=== PATIENT | female | born 1945 | race Caucasian/White ===

== ENCOUNTER 2018-06-05 14:00 | Outpatient (REF) | payer BC, SELFPAY | END 2018-06-05 14:20 | LOC: NCHCN 14:00 | PROVIDERS: PCP Internal Medicine; Visit Provider Internal Medicine | DX: Z87.440 Personal history of urinary (tract) infections (principal) | CPT/HCPCS: 87077; 87086; 87186 ==

== ENCOUNTER 2018-08-04 13:31 | Outpatient (CLI) | payer BC, SELFPAY ==
--- NOTE | 2018-08-04 13:38 | DI.RAD_ITS ---
SYMPTOMS/DIAGNOSIS: CHEST DISCOMFORT, R07.89 CHEST X-RAY, PA AND LATERAL: Comparison is 08/04/14. The heart size and pulmonary vasculature are within normal limits. The lungs are clear and well expanded. No effusions or pneumothoraces are identified. Degenerative changes are seen in the spine. IMPRESSION: No acute pulmonary process.
[2018-08-04 14:07] LABS: HCT 40.5 % (36.0-46.0); HGB 13.3 g/dL (12.0-15.5); Mean Corp. HGB Concentration 32.8 g/dL (32.0-36.0); Mean Corpuscular Hemoglobin 31.5 pg (27.0-33.0); Mean Platelet Volume 10.8 fL (8.0-11.0); Platelet Count 164 x1000/uL (130-400); RBC 4.22 m/cumm (4.00-5.20); RBC Distribution Width 13.2 % (11.7-14.6); White Blood Cell Count 3.72 k/cumm (4.4-10.8)
[2018-08-04 14:20] LABS: D-Dimer 396 ng/mlFEU (<500)
[2018-08-04 14:22] LABS: BUN 12 mg/dL (7-18); CREATININE 0.65 mg/dL (0.55-1.02); Calcium 8.9 mg/dL (8.5-10.1); Chloride 104 mmol/L (98-107); Glucose 109 mg/dL (70-100); Potassium 4.1 mmol/L (3.5-5.1); Sodium 143 mmol/L (136-145)
[2018-08-04 14:23] LABS: Troponin I < 0.02 ng/mL (0.00-0.06)
== END 2018-08-04 13:51 ==
PROVIDERS: PCP Internal Medicine; Visit Provider Nurse Practitioner Family
DX: R07.89 Other chest pain (principal)
CPT/HCPCS: 36415; 80048; 85027; 71046; 84484; 85379

== ENCOUNTER 2018-09-24 17:08 | Emergency (ER) | payer BC, SELFPAY ==
--- NOTE | 2018-09-24 17:19 | NUR.NOTE ---
pt noticed redness on her right food first joint big toe approximately 1400
[2018-09-24 17:20] VITALS: BP 150/68; PULSE 81; RESP 16; TEMP 36.6; O2SAT 98
--- NOTE | 2018-09-24 17:57 | DI.RAD_ITS ---
SYMPTOM/DIAGNOSIS: GREAT TOE PAIN, SWELLING RIGHT FOOT: Three views. No acute fracture or dislocation is seen. The soft tissues are unremarkable. IMPRESSION: No acute abnormality.
--- NOTE | 2018-09-24 17:58 | W.ED.GENAD ---
Discharge Plan Disposition Patient Disposition: HOME Condition: Improving Discharge Details Chief Complaint: Orthopedic Clinical Impression: Cellulitis of foot Primary Care Provider: Sergei Osorio ED Provider: Vance Smiley Home Meds and New Rx's Prescriptions: New doxycycline hyclate 100 mg capsule 100 mg PO BID 10 Days Qty: 20 RF: 0 Continued timolol maleate 15 ML drops 1 drp OD DAILY RF: 0 cranberry extract-vitamin C [Azo Cranberry Plus Vit C] 1 EACH capsule RF: 0 conjugated estrogens [Premarin] 30 GM cream VG .1-2 X PER WEEK RF: 0 bimatoprost [Lumigan] 2.5 ML drops 1 drp OU HS RF: 0 No Action sulfamethoxazole-trimethoprim 1 TAB tablet 1 ea PO BID Qty: 10 RF: 0 Discharge Instructions Instructions: Cellulitis (ED) Additional Instructions: Follow-up with Dr. Osorio for recheck if not improving in 5 days time. Take antibiotics as prescribed. Continue your regular medications. Medical Decision Making 73-year-old female presents with 1 day of right great toe pain and swelling with what she describes as erythema but on exam is more consistent with dependent rubor. She is afebrile and otherwise well-appearing. Differential diagnosis includes cellulitis osteoarthritis, gout, occult fracture or injury. Patient had screening laboratories obtained and was referred for x-ray Labs are reassuring without evidence of elevated inflammatory markers. Uric acid within normal range. Today with without evidence of underlying fracture. Formal read is pending. Discussed with the patient that there is no evidence of gouty arthritis. She may have a early cellulitis and therefore will treat with a course of antibiotics. She understands homecare as well as follow-up and return precautions. HPI General Mode of arrival: ambulatory. Date/Time Provider Initiated Documentation: 09/24/18 17:22. Limitations to Documentation: no limitations. Information obtained by: patient. History of Present Illness 73 year old F presents to the emergency department with the chief complaint of Left great toe pain and swelling x1d, described as moderate, Quality is described as aching, and is localized to the left and lower extremity. Patient reports no radiation. Patient started experiencing this hour(s) and it has been constant. No relieving factors improve symptom(s), No exacerbating factors reported . Patient notes denies fever/chills. Patient did receive the following treatments prior to arrival, none Related Data Home Medications Medication Instructions Recorded Confirmed timolol maleate 1 drp OD DAILY 01/18/13 01/04/17 cranberry extract-vitamin C [Azo 09/06/15 09/06/15 Cranberry Plus Vit C] bimatoprost [Lumigan] 1 drp OU HS 01/27/16 01/04/17 conjugated estrogens [Premarin] 0 gm VG .1-2 X PER WEEK 01/27/16 01/04/17 sulfamethoxazole-trimethoprim 1 ea PO BID #10 tab 01/04/17 doxycycline hyclate 100 mg PO BID 10 Days #20 cap 09/24/18 Previous Rx's Medication Instructions Recorded sulfamethoxazole-trimethoprim 1 ea PO BID #10 tab 01/04/17 doxycycline hyclate 100 mg PO BID 10 Days #20 cap 09/24/18 Allergies Allergy/AdvReac Type Severity Reaction Status Date / Time erythromycin base AdvReac Mild abd pain Unverified 01/04/17 11:22 [Erythromycin Base] latanoprost [From Xalatan] AdvReac Mild eyes Unverified 01/04/17 11:22 reddened and burned General Stated Complaint: GenMedical MARIA DE JESUS: 4 Review of Systems Review of Systems Denies injury. No recent illness. No fever. 6 systems reviewed and otherwise negative [facility] Medical History Anxiety Cystitis Glaucoma Surgical History Appendectomy Cholecystectomy colonoscpy (03/09/16) Social History Smoking/Tobacco Use Status: Never Drug use: Never Do you feel safe in your relationship?: Yes Exam Narrative Exam Narrative: GEN: awake, alert, oriented 3. Pleasant, well groomed, interactive. HEAD: Normocephalic, atraumatic ENT: Mucous membranes moist, oropharynx unremarkable, External ear exam unremarkable EYES: PERRL, EOMI NECK: Full ROM, no YARIEL, no menigismus CHEST/RESP: Nontender, clear to auscultation bilateral, no wheeze/rhonchi/rales CARDIOVASCULAR: RRR, no murmur, rub bladimir. 2+ Rad pulse bilateral EXT: Full ROM, right great toe with mild swelling and tenderness proximally with dependent rubor that is non blanching. No petechiae Neuro: Grossly normal neurologic exam, conversant, interactive. Psych: Speech fluent, thoughts congruent, affect normal Course Vital Signs Temperature 36.6 C 09/24/18 17:20 Pulse 81 09/24/18 17:20 Respiratory Rate 16 09/24/18 17:20 Blood Pressure 150/68 H 09/24/18 17:20 Pulse Oximetry 98 09/24/18 17:20 Temperature 36.6 C 09/24/18 17:20 Temperature Source Tympanic 09/24/18 17:20 Pulse 81 09/24/18 17:20 Respiratory Rate 16 09/24/18 17:20 Blood Pressure 150/68 H 09/24/18 17:20 Blood Pressure Position Sitting 09/24/18 17:20 Pulse Oximetry 98 09/24/18 17:20 Oxygen Delivery Method Room Air 09/24/18 17:20 Oxygen Flow Rate 0 09/24/18 17:20 Pain Level 3 09/24/18 17:20
--- NOTE | 2018-09-24 18:01 | ED.GENADUL_ITS ---
Discharge Plan Disposition Patient Disposition: HOME Condition: Improving Discharge Details Chief Complaint: Orthopedic Clinical Impression: Cellulitis of foot Primary Care Provider: Sergei Osorio ED Provider: Vance Smiley Home Meds and New Rx's Prescriptions: New doxycycline hyclate 100 mg capsule 100 mg PO BID 10 Days Qty: 20 RF: 0 Continued timolol maleate 15 ML drops 1 drp OD DAILY RF: 0 cranberry extract-vitamin C [Azo Cranberry Plus Vit C] 1 EACH capsule RF: 0 conjugated estrogens [Premarin] 30 GM cream VG .1-2 X PER WEEK RF: 0 bimatoprost [Lumigan] 2.5 ML drops 1 drp OU HS RF: 0 No Action sulfamethoxazole-trimethoprim 1 TAB tablet 1 ea PO BID Qty: 10 RF: 0 Discharge Instructions Instructions: Cellulitis (ED) Additional Instructions: Follow-up with Dr. Osorio for recheck if not improving in 5 days time. Take antibiotics as prescribed. Continue your regular medications. Medical Decision Making 73-year-old female presents with 1 day of right great toe pain and swelling with what she describes as erythema but on exam is more consistent with dependent rubor. She is afebrile and otherwise well-appearing. Differential diagnosis includes cellulitis osteoarthritis, gout, occult fracture or injury. Patient had screening laboratories obtained and was referred for x-ray Labs are reassuring without evidence of elevated inflammatory markers. Uric acid within normal range. Today with without evidence of underlying fracture. Formal read is pending. Discussed with the patient that there is no evidence of gouty arthritis. She may have a early cellulitis and therefore will treat with a course of antibiotics. She understands homecare as well as follow-up and return precautions. HPI General Mode of arrival: ambulatory . Date/Time Provider Initiated Documentation: 09/24/18 17:22 . Limitations to Documentation: no limitations . Information obtained by: patient . History of Present Illness 73 year old F presents to the emergency department with the chief complaint of Left great toe pain and swelling x1d, described as moderate, Quality is described as aching, and is localized to the left and lower extremity. Patient reports no radiation. Patient started experiencing this hour(s) and it has been constant. No relieving factors improve symptom(s), No exacerbating factors reported . Patient notes denies fever/chills. Patient did receive the following treatments prior to arrival, none Related Data Home Medications Medication Instructions Recorded Confirmed timolol maleate 1 drp OD DAILY 01/18/13 01/04/17 cranberry extract-vitamin C [Azo 09/06/15 09/06/15 Cranberry Plus Vit C] bimatoprost [Lumigan] 1 drp OU HS 01/27/16 01/04/17 conjugated estrogens [Premarin] 0 gm VG .1-2 X PER WEEK 01/27/16 01/04/17 sulfamethoxazole-trimethoprim 1 ea PO BID #10 tab 01/04/17 doxycycline hyclate 100 mg PO BID 10 Days #20 cap 09/24/18 Previous Rx's Medication Instructions Recorded sulfamethoxazole-trimethoprim 1 ea PO BID #10 tab 01/04/17 doxycycline hyclate 100 mg PO BID 10 Days #20 cap 09/24/18 Allergies Allergy/AdvReac Type Severity Reaction Status Date / Time erythromycin base AdvReac Mild abd pain Unverified 01/04/17 11:22 [Erythromycin Base] latanoprost [From Xalatan] AdvReac Mild eyes Unverified 01/04/17 11:22 reddened and burned General Stated Complaint: GenMedical MARIA DE JESUS: 4 Review of Systems Review of Systems Denies injury. No recent illness. No fever. 6 systems reviewed and otherwise negative [facility] Medical History Anxiety Cystitis Glaucoma Surgical History Appendectomy Cholecystectomy colonoscpy (03/09/16) Social History Smoking/Tobacco Use Status: Never Drug use: Never Do you feel safe in your relationship?: Yes Exam Narrative Exam Narrative: GEN: awake, alert, oriented 3. Pleasant, well groomed, interactive. HEAD: Normocephalic, atraumatic ENT: Mucous membranes moist, oropharynx unremarkable, External ear exam unremarkable EYES: PERRL, EOMI NECK: Full ROM, no YARIEL, no menigismus CHEST/RESP: Nontender, clear to auscultation bilateral, no wheeze/rhonchi/rales CARDIOVASCULAR: RRR, no murmur, rub bladimir. 2+ Rad pulse bilateral EXT: Full ROM, right great toe with mild swelling and tenderness proximally with dependent rubor that is non blanching. No petechiae Neuro: Grossly normal neurologic exam, conversant, interactive. Psych: Speech fluent, thoughts congruent, affect normal Course Vital Signs Temperature 36.6 C 09/24/18 17:20 Pulse 81 09/24/18 17:20 Respiratory Rate 16 09/24/18 17:20 Blood Pressure 150/68 H 09/24/18 17:20 Pulse Oximetry 98 09/24/18 17:20 Temperature 36.6 C 09/24/18 17:20 Temperature Source Tympanic 09/24/18 17:20 Pulse 81 09/24/18 17:20 Respiratory Rate 16 09/24/18 17:20 Blood Pressure 150/68 H 09/24/18 17:20 Blood Pressure Position Sitting 09/24/18 17:20 Pulse Oximetry 98 09/24/18 17:20 Oxygen Delivery Method Room Air 09/24/18 17:20 Oxygen Flow Rate 0 09/24/18 17:20 Pain Level 3 09/24/18 17:20
[2018-09-24 18:15] LABS: Abs Immature Grans 0.01 k/cumm (0.0-0.09); Absolute Basophil Count 0.03 k/cumm (0.0-0.2); Absolute Eosinophil Count 0.28 k/cumm (0.0-0.7); Absolute Lymphocyte Count 2.03 k/cumm (1.2-3.4); Absolute Monocyte Count 0.68 k/cumm (0.11-0.7); Absolute Neutrophil Count 3.58 k/cumm (1.2-6.7); Basophils % 0.5; Eosinophils % 4.2; HCT 42.2 % (36.0-46.0); HGB 14.3 g/dL (12.0-15.5); Immature Grans % 0.2; Lymphocytes % 30.7; Mean Corp. HGB Concentration 33.9 g/dL (32.0-36.0); Mean Corpuscular Hemoglobin 31.9 pg (27.0-33.0); Mean Corpuscular Volume 94.2 fL (80-95); Mean Platelet Volume 10.1 fL (8.0-11.0); Monocytes % 10.3; Neutrophils % 54.1; Platelet Count 204 x1000/uL (130-400); RBC 4.48 m/cumm (4.00-5.20); RBC Distribution Width 13.3 % (11.7-14.6); White Blood Cell Count 6.61 k/cumm (4.4-10.8)
[2018-09-24 18:33] LABS: ALT 19 U/L (12-78); AST 19 U/L (15-37); Albumin 3.6 g/dL (3.4-5.0); Alkaline Phosphatase 100 U/L (46-116); BUN 16 mg/dL (7-18); Bilirubin, Total 0.4 mg/dL (0.2-1.0); C-Reactive Protein 0.07 mg/dL (0.0-0.3); CREATININE 0.52 mg/dL (0.55-1.02); Calcium 8.8 mg/dL (8.5-10.1); Chloride 103 mmol/L (98-107); Glucose 130 mg/dL (70-100); Potassium 3.6 mmol/L (3.5-5.1); Sodium 141 mmol/L (136-145); Total Protein 7.1 g/dL (6.4-8.2); Uric Acid 3.4 mg/dL (2.6-6.0)
[2018-09-24] MEDS: Doxycycline Hyclate 100 MG CAP PO (19:34)
--- NOTE | 2018-09-24 19:58 | DI.VRAD_ITS ---
EXAM: XR Right Foot Complete, 3 or more Views EXAM DATE/TIME: 09/24/2018 5:59 PM CLINICAL HISTORY: 73 years old, female; Pain; Foot; Right; Patient HX: Great toe pain and swelling TECHNIQUE: Imaging protocol: XR Right foot 3 or more views. COMPARISON: No relevant prior studies available. FINDINGS: The bony structures are in anatomic alignment. No fracture is present. No radiopaque foreign body is identified. The joint spaces are well maintained. IMPRESSION: No evidence of acute bony abnormality. Dictated and Authenticated by: Adi Beth MD. Ordering:MARCOS Woodard MD
== END 2018-09-24 19:35 | disposition home or self-care (01) ==
PROVIDERS: Emergency Provider Emergency Medicine; PCP Internal Medicine
DX: L03.115 Cellulitis of right lower limb (principal)
CPT/HCPCS: 36415; 80053; 99284; 73630; 84550; 85025; 86140

== ENCOUNTER 2018-10-24 08:46 | Emergency (ER) | payer BC, SELFPAY ==
[2018-10-24 08:52] VITALS: BP 144/69; PULSE 74; RESP 20; TEMP 36.5; O2SAT 96
--- NOTE | 2018-10-24 09:24 | ED.GENADUL_ITS ---
Discharge Plan Disposition Patient Disposition: HOME Condition: Good Discharge Details Chief Complaint: RashLesion Clinical Impression: Tick bite Primary Care Provider: Sergei Osorio ED Provider: Maurizio Hilliard Home Meds and New Rx's Prescriptions: New doxycycline hyclate 100 mg capsule 100 mg PO BID Qty: 14 RF: 0 Continued timolol maleate 15 ML drops 1 drp OD DAILY RF: 0 cranberry extract-vitamin C [Azo Cranberry Plus Vit C] 1 EACH capsule RF: 0 Lumigan 2.5 ML drops 1 drp OU HS RF: 0 doxycycline monohydrate 100 mg Capsule 100 mg PO DAILY RF: 0 Discharge Instructions Instructions: Tick Bite (ED) Additional Instructions: Continue to monitor rash and return to emergency department or follow-up with your primary care provider as needed for any further reassessment. Take medicat ion as prescribed and until fully completed. Referrals: Sergei Osorio MD [Primary Care Provider] - (As needed for reassessment) Discharge Data Discharge Date/Time-TO BE ENTERED AT DEPARTURE: 10/24/18 09:09 Medical Decision Making Tick bite 4 days ago with now erythematous rash and surrounding clearing just noticed today. Patient states some possible nausea this morning that resolved quickly after eating breakfast and getting up from the day. Patient denies any other symptoms. Patient thinks that the tick had white on it but was unsure. Given questionable rash along with tick bite thorough discussion of continued monitoring versus starting doxycycline was made. Patient states that she is already on doxycycline for rosacea 100 mg daily so we agreed upon plan of care to increase at 200 mg twice daily for 2 weeks and to monitor rash and follow-up with primary care as needed. After discussion of diagnosis and plan of care patient has no further needs, questions, or concerns and states clear understanding to return to the emergency department for any worsening symptoms. HPI General Mode of arrival: ambulatory . Date/Time Provider Initiated Documentation: 10/24/18 08:53 . Limitations to Documentation: no limitations . Information obtained by: patient and RN notes reviewed . History of Present Illness 73 year old F presents to the emergency department with the chief complaint of tick bite, Quality is described as other (denies pain), and is localized to the right and lower extremity. Patient started experiencing this day(s) (4) and it has been constant. Patient notes no other symptoms.. Patient did receive the following treatments prior to arrival, none Related Data Home Medications Medication Instructions Recorded Confirmed timolol maleate 1 drp OD DAILY 01/18/13 10/24/18 cranberry extract-vitamin C [Azo 09/06/15 09/06/15 Cranberry Plus Vit C] Lumigan 1 drp OU HS 01/27/16 10/24/18 doxycycline hyclate 100 mg PO BID #14 cap 10/24/18 doxycycline monohydrate 100 mg PO DAILY 10/24/18 10/24/18 Previous Rx's Medication Instructions Recorded doxycycline hyclate 100 mg PO BID #14 cap 10/24/18 Allergies Allergy/AdvReac Type Severity Reaction Status Date / Time erythromycin base AdvReac Mild abd pain Unverified 10/24/18 08:54 [Erythromycin Base] latanoprost [From Xalatan] AdvReac Mild eyes Unverified 10/24/18 08:54 reddened and burned General Stated Complaint: RashLesion MARIA DE JESUS: 3 Review of Systems Constitutional Denies body ache(s), Denies chills and Denies fever(s) Cardiovascular Denies chest pain Gastrointestinal Denies abdominal pain, Reports nausea and Denies vomiting Integumentary/Breasts Reports as per HPI and Reports rash PFSH Medical History Anxiety Cystitis Glaucoma Surgical History Appendectomy Cholecystectomy colonoscpy (03/09/16) Social History Smoking/Tobacco Use Status: Never Alcohol Intake: current Drug use: Never Do you feel safe in your relationship?: Yes Exam Const General: cooperative, no acute distress and not ill appearing Orientation: alert, awake and oriented x3 Resp Effort & Inspection: normal respiratory effort, able to speak in complete sentences and no respiratory distress Skin General skin exam: no rashes or lesions noted Rashes: rashes noted (1 cm diameter erythematous rash to left lateral lower leg with clearing) Neuro General: alert, awake, oriented x3, moves all extremities and no focal motor deficits Sensory Exam: no sensory deficits noted Course Vital Signs Temperature 36.5 C 10/24/18 08:52 Pulse 74 10/24/18 08:52 Respiratory Rate 20 10/24/18 08:52 Blood Pressure 144/69 H 10/24/18 08:52 Pulse Oximetry 96 10/24/18 08:52 Temperature 36.5 C 10/24/18 08:52 Temperature Source Temporal Artery Scan 10/24/18 08:52 Pulse 74 10/24/18 08:52 Respiratory Rate 20 10/24/18 08:52 Respiratory Effort Non-Labored 10/24/18 08:52 Blood Pressure 144/69 H 10/24/18 08:52 Blood Pressure Position Sitting 10/24/18 08:52 Pulse Oximetry 96 10/24/18 08:52 Oxygen Delivery Method Room Air 10/24/18 08:52 Oxygen Flow Rate 0 10/24/18 08:52 Pain Level 0 10/24/18 08:52
[2018-10-24 13:13] VITALS: BP 144/69; PULSE 74; RESP 20; TEMP 36.5; O2SAT 96
== END 2018-10-24 09:09 | disposition home or self-care (01) ==
PROVIDERS: Emergency Provider Nurse Practitioner Family; PCP Internal Medicine
DX: S80.861A Insect bite (nonvenomous), right lower leg, initial encounter (principal); L71.9 Rosacea, unspecified; W57.XXXA Bitten or stung by nonvenomous insect and other nonvenomous arthropods, initial encounter
CPT/HCPCS: 99283

== ENCOUNTER 2018-11-17 11:05 | Outpatient (CLI) | payer BC, SELFPAY ==
--- NOTE | 2018-11-17 11:19 | DI.RAD_ITS ---
SYMPTOMS/DIAGNOSIS: COUGH, R05 PA AND LATERAL CHEST: Comparison 08/04/18. The heart size and pulmonary vasculature are within normal limits. The lungs are clear. No effusions or pneumothoraces are identified. Surgical clips are seen in the upper abdomen. Degenerative changes are seen in the spine. IMPRESSION: No acute pulmonary process.
== END 2018-11-17 11:25 ==
PROVIDERS: PCP Internal Medicine; Visit Provider Nurse Practitioner Family
DX: R05 Cough (principal)
CPT/HCPCS: 71046

== ENCOUNTER 2018-12-06 00:29 | Outpatient (CLI) | payer BC, SELFPAY ==
--- NOTE | 2018-12-06 08:00 | DI.MAMMO_ITS ---
SYMPTOMS/DIAGNOSIS: SCREENING, Z12.31 MAMMOGRAMS: Mammograms were interpreted according to the usual protocol including computer analysis with CAD system, tomosynthesis and C view imaging. The breast tissue is of moderate radiodensity. There is no evidence of a mass. There are no suspicious calcifications and there has been no significant interval change when compared with prior images. SUMMARY: No evidence of malignancy, category 1. Yearly screening mammography is recommended. Breast density category B. SA ASSESSMENT OF FINDINGS: Negative. Category 1. Patient will receive a letter notifying them of these results. BI-RADS category B. There are scattered areas of fibroglandular density.
== END 2018-12-06 00:49 ==
PROVIDERS: PCP Internal Medicine; Visit Provider Internal Medicine
DX: Z12.31 Encounter for screening mammogram for malignant neoplasm of breast (principal)
CPT/HCPCS: 77063; 77067

== ENCOUNTER 2019-09-06 12:18 | Outpatient (REF) | payer BC, SELFPAY | END 2019-09-06 12:38 | LOC: NCHCN 12:18 | PROVIDERS: PCP Internal Medicine; Visit Provider Internal Medicine | DX: N39.0 Urinary tract infection, site not specified (principal) | CPT/HCPCS: 87077; 87086; 87186 ==

== ENCOUNTER 2020-08-19 15:06 | Outpatient (REF) | payer BC, SELFPAY | END 2020-08-19 15:07 | disposition home or self-care (01) | LOC: NCHCN 15:06 | PROVIDERS: PCP Internal Medicine; Visit Provider Internal Medicine | DX: N39.0 Urinary tract infection, site not specified (principal) | CPT/HCPCS: 87077; 87086; 87186 ==

== ENCOUNTER 2020-08-25 16:44 | Outpatient (REF) | payer BC, SELFPAY ==
[2020-08-25 21:42] LABS: Calculated LDL 85 mg/dL (<100); Cholesterol 194 mg/dL (<200); HDL Cholesterol 51 mg/dL (40-60); Triglyceride 293 mg/dL (<150)
== END 2020-08-25 16:45 | disposition home or self-care (01) ==
LOC: NCHCN 16:44
PROVIDERS: PCP Internal Medicine; Visit Provider Internal Medicine
DX: Z13.220 Encounter for screening for lipoid disorders (principal); Z00.00 Encounter for general adult medical examination without abnormal findings
CPT/HCPCS: 80061

== ENCOUNTER 2020-09-05 04:31 | Outpatient (CLI) | payer BC, SELFPAY ==
--- NOTE | 2020-09-05 15:45 | DI.MAMMO_ITS ---
EXAM: MG MAMMO SCREENING CLINICAL HISTORY: SCREENING, Z12.39. TECHNIQUE: Bilateral full field digital CC and MLO mammographic images were obtained with 3D tomosyn thesis and utilizing computer aided detection (CAD). COMPARISON: Prior mammograms dating back to 2011, the most recent being November 2018. FINDINGS: There are no new spiculated masses nor malignant appearing microcalcification groups. There is no significant architectural distortion nor skin thickening-retraction. IMPRESSION: No radiographic evidence of malignancy. BI-RADS Category 1 - Negative Breast Density - Category B - Scattered areas of fibroglandular density Breast density Category C or D implies that the patient has dense breast tissue. Dense breast tissue can make it harder to find cancer on a mammogram. Dense breast tissue is also associated with an incr eased risk of breast cancer. This information about the result of the mammogram report was provided to the patient to raise their awareness. Use this report when you speak with the patient about their risks for breast cancer, which includes their family history. At that time, you may recommend additional screening tests (Ultrasoun d or MRI) as these tests may add significant information. A negative radiographic report should not delay biopsy if a dominant or clinically suspicious mass is present. Up to ten percent of cancers are not identified on mammography. A negative report may reinforce clinical impression. Adenosis and dense breasts may obscure an underlying neoplasm. False positive reports average 6 to 10%. Patient will receive a letter notifying them of these results.
== END 2020-09-05 04:51 ==
PROVIDERS: PCP Internal Medicine; Visit Provider Internal Medicine
DX: Z12.31 Encounter for screening mammogram for malignant neoplasm of breast (principal)
CPT/HCPCS: 77063; 77067

== ENCOUNTER 2020-09-17 01:20 | Outpatient (CLI) | payer BC, SELFPAY ==
--- NOTE | 2020-09-17 | DI.DEXA_ITS ---
EXAM: XR DEXA BONE DENSITY W/WO DEENA CLINICAL HISTORY: SCREENING FOR OSTEOPOROSIS IN POSTMENOPAUSAL WOMAN,Z78.0 TECHNIQUE: Routine DEXA evaluation of the lumbar spine, hip, or forearm. 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 Lateral image: No compression fracture evident. Lumbar Spine total T-score: -2.0. Prior 2018 reading was -1.6. Hip total T-score:-1.9 prior 2018 reading was -1.7 Independent reading at the femoral neck yields a T-score of -1.9 Forearm total T-score: -2.8 IMPRESSION: Bone mineral density measures in the osteopenia-osteoporosis range. Fracture risk is moderate-high. Note: Any spine fracture indicates 5x risk for subsequent spine fracture and 2x risk for subsequent h ip fracture. World Health Organization criteria for BMD interpretation classify patients: Normal...... T- Score at or above -1.0 Osteopenic... T- Score between -1.0 and -2.5 Osteoporosis... T-Score at or below -2.5
== END 2020-09-17 01:40 ==
PROVIDERS: PCP Internal Medicine; Visit Provider Internal Medicine
DX: M81.0 Age-related osteoporosis without current pathological fracture (principal); M85.88 Other specified disorders of bone density and structure, other site; Z78.0 Asymptomatic menopausal state
CPT/HCPCS: 77080

== ENCOUNTER 2021-09-05 08:30 | Emergency (ER) | payer BC, SELFPAY ==
[2021-09-05] VITALS (15 sets, daily range): BP systolic 122–183; BP diastolic 52–93; PULSE 54–70; RESP 10–20; TEMP 36.6; O2SAT 96–99
--- NOTE | 2021-09-05 08:30 | RT.EKG_ITS ---
APPROVED REPORT Exam: Resting ECG Reason for Exam: chest pain Patient Location: E HR:64 bpm ECG Measurements Heart Rate 64 AXIS ME 152 P 52 QRSd 93 QRS 9 QT 389 T 39 QTc 403 Conclusion Sinus rhythm...normal P axis, V-rate 60- 99 normal sinus rhythm, normal axis, t wave flattenin lead III
--- NOTE | 2021-09-05 09:00 | DI.RAD_ITS ---
Exam(s) XR CHEST 2V PA LATERAL EXAM: XR CHEST 2V PA LATERAL CLINICAL HISTORY: chest pain. TECHNIQUE: 2D digital imaging was performed. COMPARISON: CR XR CHEST 2V PA LATERAL from 11/17/2018 FINDINGS: 2 views: Heart size is normal. The mediastinum is not widened. Lungs are clear. No infiltrates nor pleural effusions. IMPRESSION: No acute pulmonary findings. DATA REPOSITORY: RADIATION DOSE DELIVERED:
--- NOTE | 2021-09-05 09:05 | ED.GENADUL_ITS ---
Discharge Plan Disposition Patient Disposition: HOME Condition: Stable Discharge Details Clinical Impression: Chest pain Primary Care Provider: [facility] ED Provider: Rigoberto Hanna Home Meds and New Rx's Prescriptions: Continued timolol maleate 15 ML drops 1 drp OD DAILY 0RF cranberry extract-vitamin C [Azo Cranberry Plus Vit C] 1 EACH capsule 0RF multivitamin Tablet 1 tab PO DAILY 0RF vitamin E 200 unit Capsule 200 unit PO DAILY 0RF ascorbic acid (vitamin C) [Vitamin C] 500 mg Tablet 500 mg PO DAILY 0RF cholecalciferol (vitamin D3) [Vitamin D3] 10 mcg (400 unit) Tablet 400 unit PO DAILY 0RF vitamin B complex Capsule 1 cap PO DAILY 0RF Discharge Instructions Instructions: Chest Pain (ED) Additional Instructions: Work-up in the ER is unremarkable for any obvious emergent process and you are asymptomatic. Please watch for new or worsening symptoms and return to the ER for any concerns. Lastly, contact your primary care provider first thing Tuesday to discuss your ER visit, need for outpatient reevaluation, and likely outpatient stress test and/or echocardiogram Medical Decision Making This is a 76-year-old female who reports waking up around 630 this morning, shortly after felt a epigastric-substernal chest pressure that radiated up her chest into the anterior aspect of her neck. She felt as though she needed to belch. Was unable to belch. The pressure at its worst was 5 out of 10. Patient has not taken any medication prior to arrival and upon arrival is asymptomatic. Patient reports that she has similar symptoms a few years ago, had a cardiac work-up provided and it was unremarkable. She tells me she has never had a stress. Clinically she appears well, nontoxic, slightly anxious but was easily calmed with discussing her presentation and work-up. She was slightly hypertensive but blood pressure trends down nicely without any therapy. Plan is to obtain IV access, cardiac work-up and give a single dose of full dose aspirin Patient remains asymptomatic, blood pressure continues to trend down nicely. Laboratory values are unremarkable. D-dimer 301, will not pursue CTA of the chest. Troponin less than 50. EKG is unremarkable. Chest x-ray clear Patient remains asymptomatic. She is agreeable to awaiting a delta troponin Delta troponin remains less than 50. Rapid cardiac rule out here in the ER is unremarked. Patient falls into the low risk stratification of the heart score. She is requesting to be discharged home. I do believe this to be reasonable but strict discharge and return precautions were provided. She will also contact her primary care provider on Tuesday to discuss her ER visit and to set up for an outpatient stress test This documentation was generated using [employer]ation system, please disregard any oddities of phrase or misspellings. Medical Records Medical records reviewed: Yes I reviewed the patient's medical records. Imaging Data Radiologic Study: Attestation: I personally reviewed and interpreted this imaging study as follows: Imaging: X-Ray Radiologist's impression: PROCEDURE INFORMATION: Exam: XR Chest Exam date and time: 09/05/2021 9:36 AM Age: 76 years old Clinical indication: Other: Chest pain TECHNIQUE: Imaging protocol: XR of the chest. Views: 2 views. COMPARISON: CR XR CHEST 2V PA LATERAL 11/17/2018 11:12 AM FINDINGS: Lungs: Unremarkable. No consolidation or pulmonary edema. Pleural spaces: Unremarkable. No pleural effusion or pneumothorax. Heart/Mediastinum: Heart size is normal. Cardiomediastinal contours are stable and satisfactory. Bones/joints: Multilevel thoracic spondylosis. Diffuse osseous demineralization. No acute osseous abnormality. Intraperitoneal space: Multiple surgical clips are noted in the right upper quadrant of the abdomen. IMPRESSION: No active disease in the chest. Lab Data Lab results reviewed: Yes I reviewed the patient's lab results. Labs: Laboratory Tests Range/Units 09/05/21 09/05/21 09/05/21 08:42 08:42 09:17 WBC (4.4-10.8) 10^3/uL 6.03 RBC (3.93-5.22) 10^6/uL 4.69 Hgb (11.2-15.7) g/dL 14.8 Hct (36.0-46.0) % 45.3 MCV (80-95) fL 96.6 H MCH (27.0-33.0) pg 31.6 MCHC (32.0-36.0) % 32.7 RDW (11.7-14.6) % 12.9 Plt Count (130-400) 10^3/uL 221 MPV (8.0-11.0) fL 10.6 Immature Gran % 0.3 Neutrophils % 60.7 Lymphocytes % 25.0 Monocytes % 10.8 Eosinophils % 2.5 Basophils % 0.7 Nucleated RBC % % 0 Absolute Neutrophils (1.2-6.7) 10^3/uL 3.66 Absolute Lymphocytes (1.2-3.4) 10^3/uL 1.51 Absolute Monocytes (0.1-0.8) 10^3/uL 0.65 Absolute Eosinophils (0.0-0.7) 10^3/uL 0.15 Absolute Basophils (0.0-0.2) 10^3/uL 0.04 PT (9.3-11.0) sec 10.5 INR (0.9-1.1) 1.0 APTT (21.0-27.5) sec 25.0 D-Dimer (<500) ng/mlFEU 301 Sodium (136-145) mmol/L 142 Potassium (3.5-5.1) mmol/L 4.2 Chloride (98-107) mmol/L 106 Carbon Dioxide (21.0-32.0) mmol/L 30.8 Anion Gap (3-11) mmol/L 5.2 BUN (7-18) mg/dL 20 H Creatinine (0.55-1.02) mg/dL 0.6 Estimated GFR/1.73 m2 (mL/min/1.73m2) >= 60.00 Glucose (74-106) mg/dL 113 H Calcium (8.5-10.1) mg/dL 8.7 Magnesium (1.8-2.4) mg/dL 2.1 Total Bilirubin (0.2-1.0) mg/dL 0.6 AST (15-37) U/L 17 ALT (14-59) U/L 22 Alkaline Phosphatase (46-116) U/L 97 Troponin I (<or=60) ng/L < 50 Total Protein (6.4-8.2) g/dL 7.2 Albumin (3.4-5.0) g/dL 3.6 Range/Units 09/05/21 12:00 WBC (4.4-10.8) 10^3/uL RBC (3.93-5.22) 10^6/uL Hgb (11.2-15.7) g/dL Hct (36.0-46.0) % MCV (80-95) fL MCH (27.0-33.0) pg MCHC (32.0-36.0) % RDW (11.7-14.6) % Plt Count (130-400) 10^3/uL MPV (8.0-11.0) fL Immature Gran % Neutrophils % Lymphocytes % Monocytes % Eosinophils % Basophils % Nucleated RBC % % Absolute Neutrophils (1.2-6.7) 10^3/uL Absolute Lymphocytes (1.2-3.4) 10^3/uL Absolute Monocytes (0.1-0.8) 10^3/uL Absolute Eosinophils (0.0-0.7) 10^3/uL Absolute Basophils (0.0-0.2) 10^3/uL PT (9.3-11.0) sec INR (0.9-1.1) APTT (21.0-27.5) sec D-Dimer (<500) ng/mlFEU Sodium (136-145) mmol/L Potassium (3.5-5.1) mmol/L Chloride (98-107) mmol/L Carbon Dioxide (21.0-32.0) mmol/L Anion Gap (3-11) mmol/L BUN (7-18) mg/dL Creatinine (0.55-1.02) mg/dL Estimated GFR/1.73 m2 (mL/min/1.73m2) Glucose (74-106) mg/dL Calcium (8.5-10.1) mg/dL Magnesium (1.8-2.4) mg/dL Total Bilirubin (0.2-1.0) mg/dL AST (15-37) U/L ALT (14-59) U/L Alkaline Phosphatase (46-116) U/L Troponin I (<or=60) ng/L < 50 Total Protein (6.4-8.2) g/dL Albumin (3.4-5.0) g/dL ECG Data Attestation: I personally reviewed and interpreted this ECG (s) as follows: Interpretation: Sinus rhythm, ventricular rate of 64, no STEMI. T wave is flat in lead III HPI General Mode of arrival: ambulatory . Date/Time Provider Initiated Documentation: 09/05/21 08:41 . Limitations to Documentation: no limitations . Information obtained by: patient . History of Present Illness 76 year old F presents to the emergency department with the chief complaint of chest pain, described as moderate, with intensity rated at 5. Quality is described as aching (presure), and is localized to the chest. Patient neck. Patient started experiencing this hour(s) (2.5) and it has been other (resolved now). improves with No relieving factors improve symptom(s), No exacerbating factors reported . Patient notes no other symptoms.. Patient did receive the following treatments prior to arrival, none Related Data Home Medications Medication Instructions Recorded Confirmed timolol maleate 0.5 % eye drops 1 drp OD DAILY 01/18/13 09/05/21 cranberry extract-vitamin C 250 09/06/15 09/06/15 mg-60 mg capsule (Azo Cranberry Plus Vit C) ascorbic acid (vitamin C) 500 mg 500 mg PO DAILY 09/05/21 09/05/21 tablet (Vitamin C) cholecalciferol (vitamin D3) 10 400 unit PO DAILY 09/05/21 09/05/21 mcg (400 unit) tablet (Vitamin D3) multivitamin 1 tab PO DAILY 09/05/21 09/05/21 vitamin B complex 1 cap PO DAILY 09/05/21 09/05/21 vitamin E 200 unit capsule 200 unit PO DAILY 09/05/21 09/05/21 Allergies Allergy/AdvReac Type Severity Reaction Status Date / Time erythromycin base AdvReac Mild abd pain Unverified 09/05/21 08:38 [Erythromycin Base] latanoprost [From Xalatan] AdvReac Mild eyes Unverified 09/05/21 08:38 reddened and burned General Stated Complaint: Chest Pain MARIA DE JESUS: 2 Review of Systems Constitutional Constitutional: Denies fever(s) and Denies headache(s) Eyes Eyes: Denies change in vision ENT Ears, Nose, Mouth, and Throat: Denies headache(s) and Reports neck pain (Anterior, resolved) Cardiovascular Cardiovascular: Reports chest pain and Denies dyspnea Respiratory Respiratory: Denies cough and Denies dyspnea Gastrointestinal Gastrointestinal: Denies abdominal pain, Denies nausea and Denies vomiting Musculoskeletal Musculoskeletal: Denies back pain, Reports neck pain (Anterior, resolved), Denies numbness and Denies tingling Integumentary/Breasts Skin/Breast: Denies rash Neurologic Neurologic: Denies headache(s), Denies numbness and Denies tingling Hematologic/Lymphatic Hematologic/Lymphatic: Denies easy bleeding and Denies easy bruising PFSH All Active Problems (Updated 09/05/21 @ 13:05 by WILLIE Girard) Chest pain (Acute) Medical History (Updated 09/05/21 @ 13:05 by WILLIE Girard) Anxiety Cystitis Glaucoma Surgical History Appendectomy Cholecystectomy colonoscpy (03/09/16) Social History Smoking/Tobacco Use Status: Never Smoking risk assessment performed?: Yes Alcohol Intake: current Alcohol Intake frequency: holidays/special occasions only Drug use: Never Substance use type: does not use Do you feel safe in your relationship?: Yes Exam Const General: cooperative, healthy appearing, comfortable and no acute distress Orientation: alert, awake and oriented x3 HENMT Head: normal to inspection, normocephalic and atraumatic Face and sinus: normal facial exam Mouth: moist mucous membranes Eyes General: appearance normal, both eyes and all related structures Conjunctivae: conjunctivae normal Neck Neck: normal visual inspection, full ROM, no lymphadenopathy, no meningeal signs, trachea midline, supple and nontender Resp Effort & Inspection: normal respiratory effort and able to speak in complete sentences Auscultation: clear to auscultation bilaterally Cardio Rate: regular rate Rhythm: regular rhythm GI Palpation: soft and nontender Back/Spine/Pelvis Back: No back tenderness Skin General skin exam: no rashes or lesions noted Neuro General: patient alert, patient awake, moves all extremities and no focal motor deficits Cognition: normal cognition Speech: speech normal Gait: normal gait Motor: muscle tone normal throughout Sensory Exam: no sensory deficits noted Extrem General: normal to inspection, full ROM, capillary refill normal, no pedal edema and no calf tenderness Psych Appearance: grossly normal Mental Status: mental status grossly normal Course Vital Signs Vital signs: Vital Signs Temperature 36.6 C 09/05/21 08:34 Pulse 70 09/05/21 08:34 Respiratory Rate 18 09/05/21 08:34 Blood Pressure 183/93 H 09/05/21 08:34 Pulse Oximetry 98 09/05/21 08:34 Temperature 36.6 C 09/05/21 08:34 Temperature Source Skin 09/05/21 08:34 Pulse 61 09/05/21 08:46 Pulse 62 09/05/21 08:46 Respiratory Rate 11 L 09/05/21 08:46 Respiratory Effort Non-Labored 09/05/21 08:49 Respiratory Depth Normal 09/05/21 08:49 Respiratory Pattern Normal 09/05/21 08:49 Blood Pressure 143/82 H 09/05/21 08:46 Blood Pressure Mean 97 09/05/21 08:46 Blood Pressure Position Supine 09/05/21 08:34 Pulse Oximetry 98 09/05/21 08:46 Pain Level 1 09/05/21 08:34
[2021-09-05] MEDS: Aspirin 81 MG CHEW 324 MG CH (09:13)
[2021-09-05 09:30] LABS: Abs Immature Grans 0.02 10^3/uL (0.0-0.06); Absolute Basophil Count 0.04 10^3/uL (0.0-0.2); Absolute Eosinophil Count 0.15 10^3/uL (0.0-0.7); Absolute Lymphocyte Count 1.51 10^3/uL (1.2-3.4); Absolute Monocyte Count 0.65 10^3/uL (0.1-0.8); Absolute Neutrophil Count 3.66 10^3/uL (1.2-6.7); Basophils % 0.7; Eosinophils % 2.5; HCT 45.3 % (36.0-46.0); HGB 14.8 g/dL (11.2-15.7); Immature Grans % 0.3; MCH 31.6 pg (27.0-33.0); MCHC 32.7 % (32.0-36.0); MCV 96.6 fL (80-95); MPV 10.6 fL (8.0-11.0); Monocytes % 10.8; Neutrophils % 60.7; Nucleated RBC 0 %; Platelet Count 221 10^3/uL (130-400); RBC 4.69 10^6/uL (3.93-5.22); RDW 12.9 % (11.7-14.6); RDW-SD 45.9 fL; WBC 6.03 10^3/uL (4.4-10.8)
[2021-09-05 09:44] LABS: Prothrombin Time 10.5 sec (9.3-11.0)
--- NOTE | 2021-09-05 09:48 | DI.VRAD_ITS ---
PROCEDURE INFORMATION: Exam: XR Chest Exam date and time: 09/05/2021 9:36 AM Age: 76 years old Clinical indication: Other: Chest pain TECHNIQUE: Imaging protocol: XR of the chest. Views: 2 views. COMPARISON: CR XR CHEST 2V PA LATERAL 11/17/2018 11:12 AM FINDINGS: Lungs: Unremarkable. No consolidation or pulmonary edema. Pleural spaces: Unremarkable. No pleural effusion or pneumothorax. Heart/Mediastinum: Heart size is normal. Cardiomediastinal contours are stable and satisfactory. Bones/joints: Multilevel thoracic spondylosis. Diffuse osseous demineralization. No acute osseous abnormality. Intraperitoneal space: Multiple surgical clips are noted in the right upper quadrant of the abdomen. IMPRESSION: No active disease in the chest. Dictated and Authenticated by: Luli Torres MD. Ordering:HENNY Franklin MD
[2021-09-05 09:55] LABS: ALT 22 U/L (14-59); AST 17 U/L (15-37); Albumin 3.6 g/dL (3.4-5.0); Alkaline Phosphatase 97 U/L (46-116); Anion Gap 5.2 mmol/L (3-11); BUN 20 mg/dL (7-18); Bilirubin, Total 0.6 mg/dL (0.2-1.0); CO2 30.8 mmol/L (21.0-32.0); CREATININE 0.6 mg/dL (0.55-1.02); Calcium 8.7 mg/dL (8.5-10.1); Chloride 106 mmol/L (98-107); Glucose 113 mg/dL (74-106); Magnesium 2.1 mg/dL (1.8-2.4); Potassium 4.2 mmol/L (3.5-5.1); Sodium 142 mmol/L (136-145); Total Protein 7.2 g/dL (6.4-8.2); Troponin I < 50 ng/L (<or=60)
[2021-09-05 09:57] LABS: D-Dimer 301 ng/mlFEU (<500)
[2021-09-05 12:33] LABS: Troponin I < 50 ng/L (<or=60)
== END 2021-09-05 13:25 | disposition home or self-care (01) ==
PROVIDERS: Emergency Provider Physician Assistant; PCP Family Medicine
DX: R07.9 Chest pain, unspecified (principal)
CPT/HCPCS: 80053; 93005; 99284; 71046; 83735; 84484; 85025; 85379; 85610; 85730; 93010; 99283

== ENCOUNTER 2021-09-16 02:59 | Outpatient (CLI) | payer BC, SELFPAY | END 2021-09-16 03:00 | disposition home or self-care (01) | LOC: LBO 02:59 | PROVIDERS: PCP Family Medicine; Visit Provider Family Medicine ==

== ENCOUNTER 2021-09-30 01:02 | Outpatient (CLI) | payer BC, SELFPAY ==
--- NOTE | 2021-09-30 16:45 | DI.MAMMO_ITS ---
Exam(s) MAMMO SCREENING EXAM: MAMMO SCREENING CLINICAL HISTORY: SCREENING, Z12.39 TECHNIQUE: Mammograms were interpreted according to the usual protocol including computer analysis w [employer] CAD system, tomosynthesis and C-view imaging. COMPARISON: 2013 through 2020 FINDINGS: The breasts are composed of scattered fibroglandular densities, Breast Density category B. No suspicious masses or suspicious microcalcifications are seen. No skin thickening or abnormal axillary lymph nodes are seen. There has been no significant change from prior exams. IMPRESSION: BI-RADS Category 1, Negative mammogram Yearly screening mammography is recommended. Breast Density - Category B, scattered fibroglandular densities. A negative radiographic report should not delay biopsy if a dominant or clinically suspicious mass is present. Up to ten percent of cancers are not identified on mammography. A negative report may reinforce clinical impression. Adenosis and dense breasts may obscure an underlying neoplasm. False positive reports average 6 to 10%. Patient will receive a letter notifying them of these results.
== END 2021-09-30 01:22 ==
PROVIDERS: PCP Family Medicine; Visit Provider Family Medicine
DX: Z12.31 Encounter for screening mammogram for malignant neoplasm of breast (principal)
CPT/HCPCS: 77063; 77067

== ENCOUNTER 2021-10-03 14:09 | Outpatient (REF) | payer BC, SELFPAY ==
[2021-10-05 12:11] LABS: COVID-19 RT-PCR UVMMC Result Negative (Negative)
== END 2021-10-03 14:10 | disposition home or self-care (01) ==
LOC: LBN 14:09
PROVIDERS: PCP Family Medicine; Visit Provider Physician Assistant Medical
DX: R39.15 Urgency of urination (principal); J06.9 Acute upper respiratory infection, unspecified; Z20.822 Contact with and (suspected) exposure to COVID-19
CPT/HCPCS: 87077; U0003; 87086; 87186

== ENCOUNTER 2021-10-05 02:51 | Outpatient (CLI) | payer BC, SELFPAY ==
[2021-10-05 08:54] LABS: Anion Gap 5.9 mmol/L (3-11); BUN 14 mg/dL (7-18); CO2 31.1 mmol/L (21.0-32.0); CREATININE 0.6 mg/dL (0.55-1.02); Calcium 8.6 mg/dL (8.5-10.1); Calculated LDL 84 mg/dL (<100); Chloride 105 mmol/L (98-107); Cholesterol 160 mg/dL (<200); Glucose 128 mg/dL (74-106); HDL Cholesterol 54 mg/dL (40-60); Potassium 4.5 mmol/L (3.5-5.1); Sodium 142 mmol/L (136-145); Triglyceride 111 mg/dL (<150)
== END 2021-10-05 02:52 | disposition home or self-care (01) ==
LOC: LBO 02:51
PROVIDERS: PCP Family Medicine; Visit Provider Family Medicine
DX: Z00.00 Encounter for general adult medical examination without abnormal findings (principal); M85.80 Other specified disorders of bone density and structure, unspecified site; Z13.220 Encounter for screening for lipoid disorders
CPT/HCPCS: 36415; 80048; 80061

== ENCOUNTER 2021-10-19 07:01 | Emergency (ER) | payer BC, SELFPAY ==
[2021-10-19 07:09] VITALS: BP 145/68; PULSE 65; RESP 17; TEMP 36.2; O2SAT 98
[2021-10-19 07:26] LABS: Bilirubin Negative (Negative); Blood Moderate (Negative); Clarity Clear (Clear); Glucose Negative (Negative); Ketones Negative (Negative); Leukocyte Esterase Small (Negative); Nitrite Negative (Negative); Urobilinogen 0.2 EU/dL (Up TO 0.2)
[2021-10-19 07:32] LABS: Bacteria Moderate HPF (Negative); C & S Indicated? Yes; Casts Negative LPF (Negative); Crystals Negative HPF (Negative); Epithelial Cells Few HPF (Negative); Mucus Negative (Negative)
--- NOTE | 2021-10-19 07:41 | ED.GENADUL_ITS ---
Discharge Plan Disposition Patient Disposition: HOME Condition: Stable Discharge Details Clinical Impression: Acute UTI Primary Care Provider: [facility] ED Provider: Arron Lee Home Meds and New Rx's Prescriptions: New sulfamethoxazole-trimethoprim 800-160 mg tablet 1 tab PO BID 5 Days Qty: 10 0RF No Action timolol maleate 15 ML drops 1 drp OD DAILY 0RF cranberry extract-vitamin C [Azo Cranberry Plus Vit C] 1 EACH capsule 1 cap PO DAILY 0RF multivitamin Tablet 1 tab PO DAILY 0RF vitamin E 200 unit Capsule 200 unit PO DAILY 0RF ascorbic acid (vitamin C) [Vitamin C] 500 mg Tablet 500 mg PO DAILY 0RF cholecalciferol (vitamin D3) [Vitamin D3] 10 mcg (400 unit) Tablet 400 unit PO DAILY 0RF vitamin B complex Capsule 1 cap PO DAILY 0RF Discharge Instructions Instructions: Urinary Tract Infection in Women (ED) Additional Instructions: Please take medications as prescribed. Please return to the emergency department if you develop nausea vomiting fevers chills back pain or other abnormal symptoms. Please follow-up with your primary care physician. Medical Decision Making 76-year-old female history of recurrent UTIs presents with suprapubic discomfort as well as urinary frequency that began this morning, no fevers no chills no nausea no vomiting, nontoxic hemodynamically stable, no CVA tenderness, likely UTI lower suspicion for pelvic infection or malignancy or bowel obstruction or colitis. UA shows signs of urinary tract infection. Patient endorses that Bactrim is the antibiotic as were most successfully in the past. Endorses a poor reaction to Keflex. Will start patient on Bactrim. Patient will follow with her primary care physician, home care instructions and return precautions given HPI General Date/Time Provider Initiated Documentation: 10/19/21 07:09 . HPI Narrative: 76-year-old female history of recurrent urinary tract infections presents with suprapubic pressure and urinary frequency that began this morning. Denies nausea vomiting fever chills or back pain. Endorses that Bactrim has worked successfully multiple times in the past. Has had a bad reaction to Keflex in the past. Related Data Home Medications Medication Instructions Recorded Confirmed timolol maleate 0.5 % eye drops 1 drp OD DAILY 01/18/13 10/19/21 cranberry extract-vitamin C 250 1 cap PO DAILY 09/06/15 10/19/21 mg-60 mg capsule (Azo Cranberry Plus Vit C) ascorbic acid (vitamin C) 500 mg 500 mg PO DAILY 09/05/21 10/19/21 tablet (Vitamin C) cholecalciferol (vitamin D3) 10 400 unit PO DAILY 09/05/21 10/19/21 mcg (400 unit) tablet (Vitamin D3) multivitamin 1 tab PO DAILY 09/05/21 10/19/21 vitamin B complex 1 cap PO DAILY 09/05/21 10/19/21 vitamin E 200 unit capsule 200 unit PO DAILY 09/05/21 10/19/21 sulfamethoxazole 800 1 tab PO BID 5 Days #10 tab 10/19/21 mg-trimethoprim 160 mg tablet Previous Rx's Medication Instructions Recorded sulfamethoxazole 800 1 tab PO BID 5 Days #10 tab 10/19/21 mg-trimethoprim 160 mg tablet Allergies Allergy/AdvReac Type Severity Reaction Status Date / Time erythromycin base AdvReac Mild abd pain Unverified 10/19/21 07:20 [Erythromycin Base] latanoprost [From Xalatan] AdvReac Mild eyes Unverified 10/19/21 07:20 reddened and burned General Stated Complaint: Urinary MARIA DE JESUS: 4 Review of Systems Narrative: Review of Systems Constitutional: negative Eyes: negative ENT: negative Cardiovascular: negative Respiratory: negative Gastrointestinal: negative : Urinary frequency, suprapubic pressure Musculoskeletal: negative Skin: negative Neurologic: negative Psych: negative PFSH All Active Problems (Updated 10/19/21 @ 07:43 by Arron Lee MD) Acute UTI (Acute) Medical History (Updated 10/19/21 @ 07:43 by Arron Lee MD) Anxiety Cystitis Glaucoma Surgical History Appendectomy Cholecystectomy colonoscpy (03/09/16) Social History Smoking/Tobacco Use Status: Never Smoking risk assessment performed?: Yes Alcohol Intake: current Alcohol Intake frequency: holidays/special occasions only Drug use: Never Substance use type: does not use Do you feel safe at home: Yes Do you feel safe in your relationship?: Yes Exam Narrative Exam Narrative: Physical Examination General: alert, awake, cooperative, resting comfortably, no acute distress HEENT: normocephalic, atraumatic; PERRL, EOM intact, conjunctiva normal; no nasa l discharge; moist mucous membranes, oral and pharyngeal mucosa normal, tolerating secretions Neck: supple, trachea midline; full ROM Chest: normal to inspection Respiratory: normal respiratory effort, speaking in full sentences, clear to auscultation, no wheezing, rales or rhonchi Cardiac: regular rate, regular rhythm, S1S2 intact, no murmurs rubs or gallops GI: abdomen soft, non-tender, non-distended; no palpable mass or hepatosplenomegaly : No CVA tenderness Back: No CVA tenderness Skin: no lesions, rashes or trauma appreciated Neuro: AAOx3, normal speech, moving all extremities Psych: Appropriate mood and affect Course Vital Signs Vital signs: Vital Signs Temperature 36.2 C L 10/19/21 07:09 Pulse 65 10/19/21 07:09 Respiratory Rate 17 10/19/21 07:09 Blood Pressure 145/68 H 10/19/21 07:09 Pulse Oximetry 98 10/19/21 07:09 Temperature 36.2 C L 10/19/21 07:09 Temperature Source Temporal Artery Scan 10/19/21 07:09 Pulse 65 10/19/21 07:09 Respiratory Rate 17 10/19/21 07:09 Respiratory Effort Non-Labored 10/19/21 07:15 Blood Pressure 145/68 H 10/19/21 07:09 Blood Pressure Position Sitting 10/19/21 07:09 Pulse Oximetry 98 10/19/21 07:09 Oxygen Delivery Method Room Air 10/19/21 07:09 Oxygen Flow Rate 0 10/19/21 07:09 Pain Level 0 10/19/21 07:15 Lab/Test Results Lab/Test Results: 10/19/21 07:05 Urine - Reflex from Ua Urine Culture - Pending Laboratory Tests Range/Units 10/19/21 07:05 Urine Color (Yellow) Yellow Urine Clarity (Clear) Clear Urine pH (5-8) 6.0 Ur Specific [place] (1.005-1.025) 1.010 Urine Protein (Negative) mg/dL Negative Urine Ketones (Negative) mg/dL Negative Urine Blood (Negative) Moderate H Urine Nitrite (Negative) Negative Urine Bilirubin (Negative) Negative Urine Urobilinogen (Up TO 0.2) EU/dL 0.2 Ur Leukocyte Esterase (Negative) Small H Urine RBC (0-2) HPF 10-20 H Urine WBC (0-5) HPF 10-20 H Ur Epithelial Cells (Negative) HPF Few Urine Crystals (Negative) HPF Negative Urine Bacteria (Negative) HPF Moderate Urine Casts (Negative) LPF Negative Urine Mucus (Negative) Negative Ur Culture Indicated? Yes Urine Glucose (Negative) mg/dL Negative
== END 2021-10-19 07:52 | disposition home or self-care (01) ==
PROVIDERS: Emergency Provider Emergency Medicine; PCP Family Medicine
DX: N39.0 Urinary tract infection, site not specified (principal); B96.20 Unspecified Escherichia coli [E. coli] as the cause of diseases classified elsewhere
CPT/HCPCS: 87077; 99283; 81003; 81015; 87086; 87186

== ENCOUNTER 2021-12-13 08:30 | Emergency (ER) | payer BC, SELFPAY ==
--- NOTE | 2021-12-13 08:35 | ED.GENADUL_ITS ---
Discharge Plan Disposition Patient Disposition: HOME Condition: Stable Discharge Details Clinical Impression: Tick bite of groin Primary Care Provider: [facility] ED Provider: Narcisa Mendoza Home Meds and New Rx's Prescriptions: New doxycycline hyclate 100 mg tablet 100 mg PO BID 14 Days Qty: 28 0RF Continued timolol maleate 15 ML drops 1 drp OD DAILY cranberry extract-vitamin C [Azo Cranberry Plus Vit C] 1 EACH capsule 1 cap PO DAILY multivitamin Tablet 1 tab PO DAILY vitamin E 200 unit Capsule 200 unit PO DAILY ascorbic acid (vitamin C) [Vitamin C] 500 mg Tablet 500 mg PO DAILY cholecalciferol (vitamin D3) [Vitamin D3] 10 mcg (400 unit) Tablet 400 unit PO DAILY vitamin B complex Capsule 1 cap PO DAILY travoprost 0.004 % drops 1 drp ophthalmic (eye) HS Label Comments: PLACE 1 DROP INTO THE LEFT EYE EVERY EVENING Discharge Instructions Instructions: Tick Bite (ED) Additional Instructions: Keep wound clean and dry. Wash the area with soap and water. You can apply top ical antibiotic ointment if you notice any increasing redness, pain or swelling. You were given 1 dose of the antibiotic doxycycline as prophylaxis against Lyme disease. If you notice any increasing redness resembling a bull's-eye rash to the left groin, fever, chills or body aches, start the antibiotic prescription and take it as directed until finished. Follow-up with your primary care doctor in 1 week. Return to the emergency department with any worsening or new concerning symptoms. Discharge Data Discharge Physician: Narcisa Mendoza Medical Decision Making 76-year-old presents for evaluation after she removed a tick from her left groin with concern for Lyme disease. She denies any fever, chills, body aches or bull's-eye rash. She appears comfortable and nontoxic. There is a small papule at the site of the tick bite but no cellulitis, abscess or target lesion. Discussed with patient that as the tick was present for 1 week and was engorged, will give prophylactic dose of doxycycline now. Patient given prescription for doxycycline to start if she develops fever, chills, body aches or bull's-eye rash due to her concern for Lyme disease. Advised to follow up with the primary care doctor for re-evaluation. Usual and customary return precautions given prior to discharge. Medical Records Medical records reviewed: Yes I reviewed the patient's medical records. HPI General Mode of arrival: ambulatory . Date/Time Provider Initiated Documentation: 12/13/21 08:35 . Limitations to Documentation: no limitations . Information obtained by: patient . HPI Narrative: Patient is a 76-year-old female who presents to the ED with a complaint of tick bite with concern for Lyme disease. She states she noted what she thought was a possible skin tag in her left groin a few days ago. She noticed it was causing pain and was getting larger and upon closer inspection realized it was a tick. She states it was present for probably a week and she thinks it was engorged. She states she was able to remove it completely with alcohol and hydrogen peroxide. She denies any fever, body aches, chills, bull's-eye rash. Related Data Home Medications Medication Instructions Recorded Confirmed timolol maleate 0.5 % eye drops 1 drp OD DAILY 01/18/13 12/13/21 cranberry extract-vitamin C 250 1 cap PO DAILY 09/06/15 12/13/21 mg-60 mg capsule (Azo Cranberry Plus Vit C) ascorbic acid (vitamin C) 500 mg 500 mg PO DAILY 09/05/21 12/13/21 tablet (Vitamin C) cholecalciferol (vitamin D3) 10 400 unit PO DAILY 09/05/21 12/13/21 mcg (400 unit) tablet (Vitamin D3) multivitamin 1 tab PO DAILY 09/05/21 10/19/21 vitamin B complex 1 cap PO DAILY 09/05/21 12/13/21 vitamin E 200 unit capsule 200 unit PO DAILY 09/05/21 12/13/21 doxycycline hyclate 100 mg tablet 100 mg PO BID 14 days #28 tabs 12/13/21 travoprost 0.004 % eye drops 1 drp ophthalmic (eye) HS 12/13/21 12/13/21 Previous Rx's Medication Instructions Recorded doxycycline hyclate 100 mg tablet 100 mg PO BID 14 days #28 tabs 12/13/21 Allergies Allergy/AdvReac Type Severity Reaction Status Date / Time erythromycin base AdvReac Mild abd pain Unverified 10/19/21 07:20 [Erythromycin Base] latanoprost [From Xalatan] AdvReac Mild eyes Unverified 10/19/21 07:20 reddened and burned General Stated Complaint: RashLesion MARIA DE JESUS: 4 Review of Systems All systems reviewed & are unremarkable except as noted in HPI and below Constitutional Constitutional: Reports as per HPI, Denies chills and Denies fever(s) Eyes Eyes: Denies blurry vision ENT Ears, Nose, Mouth, and Throat: Denies dizziness, Denies sore throat and Denies throat swelling Cardiovascular Cardiovascular: Denies chest pain and Denies dyspnea Respiratory Respiratory: Denies cough and Denies dyspnea Gastrointestinal Gastrointestinal: Denies abdominal pain, Denies diarrhea and Denies vomiting Genitourinary Genitourinary: Denies hematuria and Denies dysuria Musculoskeletal Musculoskeletal: Denies back pain and Denies numbness Integumentary/Breasts Skin/Breast: Denies lesions and Denies rash Neurologic Neurologic: Denies dizziness, Denies localized weakness and Denies numbness Allergic/Immunologic Allergic/Immunologic: Denies throat swelling PFSH All Active Problems (Updated 12/13/21 @ 09:00 by Narcisa Mendoza DO) Tick bite of groin (Acute) Medical History (Updated 12/13/21 @ 09:00 by Nacrisa Mendoza DO) Anxiety Cystitis Glaucoma Surgical History Appendectomy Cholecystectomy colonoscpy (03/09/16) Social History Smoking/Tobacco Use Status: Never Smoking risk assessment performed?: Yes Alcohol Intake: current Alcohol Intake frequency: holidays/special occasions only Drug use: Never Substance use type: does not use Do you feel safe at home: Yes Do you feel safe in your relationship?: Yes Exam Const General: cooperative, healthy appearing and no acute distress Orientation: alert, awake and oriented x3 HENMT Head: normal to inspection Mouth: oral mucosae normal Eyes General: appearance normal, both eyes and all related structures Neck Neck: normal visual inspection Resp Effort & Inspection: normal respiratory effort and able to speak in complete sentences Cardio Rate: regular rate Skin Full body images: 1. 3 x 3 mm pink/erythematous papule noted in the left groin. There is no surrounding erythema, edema, induration, fluctuance, drainage or bleeding. There is no evidence of bull's-eye rash. Neuro General: patient alert, patient awake and patient oriented x3 Motor: muscle tone normal throughout Psych Appearance: grossly normal Affect: normal affect
[2021-12-13 08:36] VITALS: BP 146/76; PULSE 60; RESP 16; TEMP 36.7; O2SAT 97
== END 2021-12-13 09:13 | disposition home or self-care (01) ==
PROVIDERS: Emergency Provider Physician Assistant; PCP Family Medicine
DX: S30.861A Insect bite (nonvenomous) of abdominal wall, initial encounter (principal); W57.XXXA Bitten or stung by nonvenomous insect and other nonvenomous arthropods, initial encounter
CPT/HCPCS: 99283

== ENCOUNTER 2022-03-07 07:32 | Emergency (ER) | payer BC, SELFPAY ==
[2022-03-07 07:41] VITALS: BP 168/67; PULSE 72; RESP 18; TEMP 37; O2SAT 97
--- NOTE | 2022-03-07 08:10 | W.ED.GENAD ---
Discharge Plan Disposition Patient Disposition: HOME Condition: Stable Discharge Details Clinical Impression: Viral URI with cough Primary Care Provider: [facility] ED Provider: Narcisa Mendoza Home Meds and New Rx's Prescriptions: Continued timolol maleate 15 ML drops 1 drp OD DAILY cranberry extract-vitamin C [Azo Cranberry Plus Vit C] 1 EACH capsule 1 cap PO DAILY multivitamin Tablet 1 tab PO DAILY vitamin E 200 unit Capsule 200 unit PO DAILY ascorbic acid (vitamin C) [Vitamin C] 500 mg Tablet 500 mg PO DAILY cholecalciferol (vitamin D3) [Vitamin D3] 10 mcg (400 unit) Tablet 400 unit PO DAILY vitamin B complex Capsule 1 cap PO DAILY travoprost 0.004 % drops 1 drp ophthalmic (eye) HS Label Comments: PLACE 1 DROP INTO THE LEFT EYE EVERY EVENING doxycycline hyclate 100 mg tablet 100 mg PO BID 14 Days Qty: 28 0RF Discharge Instructions Instructions: Upper Respiratory Infection (ED), Acute Cough (ED) Additional Instructions: Your symptoms may be secondary to a viral upper respiratory tract infection. This is best treated with fluids, rest and alternating Tylenol and Motrin. You can take Tylenol every 4 hours and ibuprofen every 6 hours as needed and directed for pain or fever. You can take [id number] cough and cold medication as needed and directed. Please quarantine until your COVID test result is available and if confirmed to be negative. Follow-up with your primary care doctor in 1 week. Return to the emergency department with any worsening or new concerning symptoms. Stand Alone Forms: PENDING COVID-19 TESTING Discharge Data Discharge Physician: Narcisa Mendoza Medical Decision Making 76-year-old female presents with postnasal drip, sore throat, cough, headache and neck pain for the past 5 days. She states her sore throat and neck pain is improving and mainly now with postnasal drip and frontal headache. Her blood pressure is mildly hypertensive but she is afebrile with normal heart rate, respiratory rate, oxygen saturation. She has no sinus tenderness or fullness. Normal oropharynx. TMs normal bilaterally. Her lungs are clear with oxygen saturation 98% on room air. Discussed with patient that her symptoms could be secondary to a viral URI with cough but also could be secondary to COVID. Pneumonia appears unlikely as her sputum production has improved and she has no complaint of fever or shortness of breath with normal heart rate and oxygen saturation. Bacterial sinusitis appears less likely as she has no complaint of fever, green nasal discharge and has no sinus tenderness. She has no meningeal signs and meningitis appears unlikely. Do not feel indication for antibiotics at this time and patient is agreeable. Patient declines a fluvid as she does not want a nasopharynx swab. Send out COVID swab obtained. Patient was given a dose of Tylenol and ibuprofen here. She is advised to increase fluids, rest, alternate Tylenol and Motrin and take [id number] cough and cold medication. Discussed that if her symptoms do not improve or worsen, she can follow-up with her primary care doctor for reevaluation or return to the emergency department if she develops worsening headache, neck pain, difficulty breathing or any other concerns. Medical Records Medical records reviewed: Yes I reviewed the patient's medical records. HPI General Mode of arrival: ambulatory. Date/Time Provider Initiated Documentation: 03/07/22 07:55. Limitations to Documentation: no limitations. Information obtained by: patient. HPI Narrative: Patient is a 76-year-old female with with a history of glaucoma presents for postnasal drip, sore throat, headache, neck pain and cough for the past 5 days. Patient states her neck pain has been improving but still has frontal headache and postnasal drip and was concerned about a possible sinus infection. She states she has been coughing up green sputum but states this is improving. She states she works at the [employer] and has been in contact with sick students. She is fully vaccinated for COVID and denies any known exposure to coronavirus. She did a home COVID test this week which was negative. She denies any fever, ear pain, current sore throat, green nasal discharge, chest pain or shortness of breath. She states her neck pain is improving. She last had Aleve last night for pain with relief. Related Data Home Medications Medication Instructions Recorded Confirmed timolol maleate 0.5 % eye drops 1 drp OD DAILY 01/18/13 03/07/22 cranberry extract-vitamin C 250 1 cap PO DAILY 09/06/15 03/07/22 mg-60 mg capsule (Azo Cranberry Plus Vit C) ascorbic acid (vitamin C) 500 mg 500 mg PO DAILY 09/05/21 03/07/22 tablet (Vitamin C) cholecalciferol (vitamin D3) 10 400 unit PO DAILY 09/05/21 03/07/22 mcg (400 unit) tablet (Vitamin D3) multivitamin 1 tab PO DAILY 09/05/21 03/07/22 vitamin B complex 1 cap PO DAILY 09/05/21 03/07/22 vitamin E 200 unit capsule 200 unit PO DAILY 09/05/21 03/07/22 doxycycline hyclate 100 mg tablet 100 mg PO BID 14 days #28 tabs 12/13/21 travoprost 0.004 % eye drops 1 drp ophthalmic (eye) HS 12/13/21 03/07/22 Previous Rx's Medication Instructions Recorded doxycycline hyclate 100 mg tablet 100 mg PO BID 14 days #28 tabs 12/13/21 Allergies Allergy/AdvReac Type Severity Reaction Status Date / Time erythromycin base AdvReac Mild abd pain Unverified 03/07/22 07:45 [Erythromycin Base] latanoprost [From Xalatan] AdvReac Mild eyes Unverified 03/07/22 07:45 reddened and burned General Stated Complaint: RespSymp MARIA DE JESUS: 4 Review of Systems All systems reviewed & are unremarkable except as noted in HPI and below Constitutional Constitutional: Reports as per HPI, Denies chills, Denies fever(s) and Reports headache(s) Eyes Eyes: Denies blurry vision ENT Ears, Nose, Mouth, and Throat: Denies dizziness, Reports headache(s), Reports nasal congestion, Reports post nasal drip, Reports sore throat and Denies throat swelling Cardiovascular Cardiovascular: Denies chest pain and Denies dyspnea Respiratory Respiratory: Reports cough and Denies dyspnea Gastrointestinal Gastrointestinal: Denies abdominal pain, Denies diarrhea and Denies vomiting Genitourinary Genitourinary: Denies hematuria and Denies dysuria Musculoskeletal Musculoskeletal: Denies back pain and Denies numbness Integumentary/Breasts Skin/Breast: Denies lesions and Denies rash Neurologic Neurologic: Denies dizziness, Reports headache(s), Denies localized weakness and Denies numbness Allergic/Immunologic Allergic/Immunologic: Denies throat swelling PFSH All Active Problems (Updated 03/07/22 @ 08:17 by Narcisa Mendoza DO) Viral URI with cough (Acute) Medical History (Updated 03/07/22 @ 08:17 by Narcisa Mendoza DO) Anxiety Cystitis Glaucoma Surgical History Appendectomy Cholecystectomy colonoscpy (03/09/16) Social History Smoking/Tobacco Use Status: Never Smoking risk assessment performed?: Yes Alcohol Intake: current Alcohol Intake frequency: holidays/special occasions only Drug use: Never Substance use type: does not use Do you feel safe at home: Yes Do you feel safe in your relationship?: Yes Exam Const General: cooperative and no acute distress Orientation: alert, awake and oriented x3 HENMT Head: normal to inspection Ears: hearing grossly normal bilaterally, external ears normal and TM's normal bilaterally General nose exam: external nose normal Face and sinus: normal facial exam and no sinus tenderness Mouth: oral mucosae normal, no drooling and no trismus Throat: posterior oropharynx normal Eyes General: appearance normal, both eyes and all related structures Neck Neck: normal visual inspection, no meningeal signs, supple, no anterior neck swelling and No submandibular swelling Resp Effort & Inspection: normal respiratory effort and able to speak in complete sentences Auscultation: clear to auscultation bilaterally Cardio Rate: regular rate Rhythm: regular rhythm Skin General skin exam: no rashes or lesions noted Neuro General: patient alert, patient awake, patient oriented x3, gait normal, moves all extremities and no meningeal signs Motor: muscle tone normal throughout Extrem General: normal to inspection and full ROM Psych Appearance: grossly normal Affect: normal affect Course Vital Signs Vital signs: Vital Signs Temperature 98.6 F 03/07/22 07:41 Pulse 72 03/07/22 07:41 Respiratory Rate 18 03/07/22 07:41 Blood Pressure 168/67 H 03/07/22 07:41 Pulse Oximetry 97 03/07/22 07:41 Temperature 98.6 F 03/07/22 07:41 Temperature Source Temporal Artery Scan 03/07/22 07:41 Pulse 72 03/07/22 07:41 Respiratory Rate 18 03/07/22 07:41 Respiratory Effort Non-Labored 03/07/22 07:47 Respiratory Depth Normal 03/07/22 07:47 Blood Pressure 168/67 H 03/07/22 07:41 Blood Pressure Position Sitting 03/07/22 07:41 Pulse Oximetry 97 03/07/22 07:41 Oxygen Delivery Method Room Air 03/07/22 07:41 Oxygen Flow Rate 0 03/07/22 07:41
[2022-03-07] MEDS: Ibuprofen 600 MG TAB PO (08:15)
[2022-03-07] MEDS: Acetaminophen 500 MG TAB 1000 MG PO (08:15)
[2022-03-09 11:30] LABS: COVID-19 RT-PCR UVMMC Result Negative (Negative)
--- NOTE | 2022-03-09 13:45 | NUR.NOTE ---
patient made aware of negative covid results.
== END 2022-03-07 08:32 | disposition home or self-care (01) ==
PROVIDERS: Emergency Provider Physician Assistant; PCP Family Medicine
DX: J06.9 Acute upper respiratory infection, unspecified (principal); M54.2 Cervicalgia; Z20.822 Contact with and (suspected) exposure to COVID-19
CPT/HCPCS: 99282; U0003

== ENCOUNTER 2022-07-07 19:20 | Outpatient (REF) | payer BC, SELFPAY ==
[2022-07-07 21:24] LABS: Epithelial Cells Few HPF (Negative); RBC 0-2 HPF (0-2)
[2022-07-07 21:25] LABS: Bacteria Many HPF (Negative); C & S Indicated? C&S Done As Ordered; Casts Negative LPF (Negative); Crystals Negative HPF (Negative); Mucus Negative (Negative)
== END 2022-07-07 19:21 | disposition home or self-care (01) ==
LOC: LBN 19:20
PROVIDERS: PCP Family Medicine; Visit Provider Physician Assistant Medical
DX: Z87.440 Personal history of urinary (tract) infections (principal)
CPT/HCPCS: 87077; 81015; 87086; 87186

== ENCOUNTER 2022-09-14 16:50 | Outpatient (REF) | payer BC, SELFPAY | END 2022-09-14 16:51 | disposition home or self-care (01) | LOC: LBN 16:50 | PROVIDERS: PCP Family Medicine; Visit Provider Nurse Practitioner Family | DX: R35.0 Frequency of micturition (principal) | CPT/HCPCS: 87077; 87086; 87186 ==

== ENCOUNTER 2022-11-13 13:37 | Outpatient (REF) | payer BC, SELFPAY ==
[2022-11-13 17:03] LABS: Bacteria Moderate HPF (Negative); C & S Indicated? C&S Done As Ordered; Casts Negative LPF (Negative); Crystals Negative HPF (Negative); Epithelial Cells Rare HPF (Negative); Mucus Negative (Negative); RBC 0-2 HPF (0-2)
== END 2022-11-13 13:38 | disposition home or self-care (01) ==
LOC: LBN 13:37
PROVIDERS: PCP Family Medicine; Visit Provider Physician Assistant Medical
DX: R30.0 Dysuria (principal)
CPT/HCPCS: 87077; 81015; 87086; 87186

== ENCOUNTER 2023-09-08 16:47 | Outpatient (REF) | payer BC, SELFPAY ==
[2023-09-08 21:25] LABS: MCHC 33.3 % (32.0-36.0); MCV 96 fL (80-95); MPV 11.9 fL (8.0-11.0); Platelet Count 180 10^3/uL (130-400); RBC 4.38 10^6/uL (3.93-5.22); RDW 13.1 % (11.7-14.6); RDW-SD 46.7 fL; WBC 7.55 10^3/uL (4.4-10.8)
[2023-09-08 21:46] LABS: Anion Gap 8.2 mmol/L (3-11); BUN 20 mg/dL (7-18); CO2 28.8 mmol/L (21.0-32.0); CREATININE 0.6 mg/dL (0.55-1.02); Calcium 9.2 mg/dL (8.5-10.1); Chloride 106 mmol/L (98-107); Estimated GFR 91.25 (mL/min/1.73m2); Glucose 147 mg/dL (74-106); Sodium 143 mmol/L (136-145)
== END 2023-09-08 16:48 | disposition home or self-care (01) ==
LOC: NCHCN 16:47
PROVIDERS: PCP Family Medicine; Visit Provider Family Medicine
DX: Z00.00 Encounter for general adult medical examination without abnormal findings (principal)
CPT/HCPCS: 80048; 85027

== ENCOUNTER 2023-09-20 18:02 | Outpatient (REF) | payer BC, SELFPAY | END 2023-09-20 18:03 | disposition home or self-care (01) | LOC: LBN 18:02 | PROVIDERS: PCP Family Medicine; Visit Provider Nurse Practitioner Family | DX: N30.01 Acute cystitis with hematuria (principal) | CPT/HCPCS: 87086 ==

== ENCOUNTER → 2023-10-04 01:09 | Outpatient (CLI) | payer BC, SELFPAY ==
--- NOTE | 2023-10-04 | DI.US_ITS ---
APPROVED REPORT EXAM: Comprehensive 2D, Doppler, and color-flow Echocardiogram Patient Location: Out-Patient Calibration Specialist: Janet Lang RDCS (AE) Indications: Heart Murmur Other Information Study Quality: Good Conclusion Normal left ventricular wall thickness and chamber size. EF is 60%. Wall motion is normal Normal right ventricular size and function Both atria are normal in size. The aortic valve is calcified and trileaflet. Mild aortic regurgitation There is moderate aortic s tenosis . Peak gradient is 44, mean 28 mmHg. Calculated aortic valve area is 1.0 cm2. Estimated right ventricular systolic pressure is 26 mmHg Wall motion Left Ventricle The left ventricle is normal size. The left ventricular systolic function is normal. The left ventric ular ejection fraction is within the normal range. There is normal left ventricular wall thickness. T here is normal LV segmental wall motion. There is no ventricular septal defect visualized. LVEF is 60 %. Right Ventricle The right ventricle is normal size. The right ventricular systolic function is normal. Atria The left atrium size is normal. The right atrium size is normal. The interatrial septum is intact wit h no evidence for an atrial septal defect. Aortic Valve Aortic valve is calcified. Aortic valve is trileaflet. Moderate aortic stenosis. Peak aortic valve gr adient is 44.04_mmHg. Highest mean aortic valve gradient is 28.33mmHg. Calculated MATY by the continui ty equation is 1.0cm2. Mild aortic regurgitation. Mitral Valve The mitral valve is normal in structure. No evidence of mitral valve stenosis. Trace to mild mitral regurgitation. Tricuspid Valve The tricuspid valve is normal in structure. There is no tricuspid valve stenosis. Trace to mild tricu spid regurgitation. The RVSP is 25.6mmHg. Pulmonic Valve The pulmonary valve is normal in structure. There is no pulmonic valvular stenosis. There is no pulmo anuradha valvular regurgitation. Great Vessels The aortic root is normal in size. The ascending aorta is mildly dilated. Aortic arch is normal in ca liber. IVC is normal in size and collapses >50% with inspiration. Pericardium There is no pericardial effusion. 2D Dimensions IVSD d PLAX 0.83 cm F: 0.6-1.0 Ao Root d 2.62 cm F: 2.7 - 3.3 LVPW d PLAX 0.80 cm F: 0.6 - 1.0 Ao Asc Diam d 3.20 cm F: 2.3 - 3.1 LVID d PLAX 4.44 cm F: 3.8 - 5.2 LVDs 3.04 cm F: 2.2 - 3.5 LV EF Teichholz 59.6 % FS 31.52 % LV EDV (Teich) 89.7 mL LV ESV (Teich) 36.2 mL M-Mode TAPSE 2.03 cm (M/F) >1.7 Auto EF LV EDV A4C 78.5 mL LV EDV A2C 95.2 mL LV EDV BP 86.5 mL LV ESV A4C 32.9 mL LV ESV A2C 41.1 mL LV ESV BP 37.2 mL LVEF(%) A4C 58.1 % LVEF(%) A2C 56.9 % LVEF(%) BP 56.9 % LV SV A4C 45.6 ml LV SV A2C 54.1 ml LV SV BP 49.2 ml LV CO A4C 2.9 L/min LV CO A2C 3.5 L/min LV CO BP 3.2 L/min HR A4C 63.49 BPM HR A2C 64.52 BPM LV EDV Index (BP) LA Volume LA Length A4C 4.4 cm LA Length A2C 5.2 cm LA Area A4C s 15.82 cm2 LA Area A2C s 17.23 cm2 LA Vol A4C A-L 48.31 mL LA Vol A2C A-L 48.05 mL LA Vol Biplane A-L 52.6 mL LA Vol/BSA A4C A-L LA Vol/BSA A2C A-L LA Vol/BSA BP A-L 30.2 mL/m2 LA Vol A4C MOD 45.6 mL LA Vol A2C MOD 42.9 mL LA Vol BP MOD 48.2 mL RA Volume RA Area A4C 11.9 cm2 RA ESV A4C (A-L) 26.5mL RA Vol/BSA A4C A-L RA Length A4C 4.6 cm RA ESV A4C (MOD) 24.7mL LV Diastology MV E' medial 0.045 (>0.07 m/s) MV E Vmax 0.88 (0.4-1.3 m/s) MV E/E' MED 19.61 (<14) MV A Vmax 1.10 (0.4-1.3 m/s) MV E' lateral 0.046 (>0.1 m/s) E/A Ratio 0.8 MV E/E' LAT 19.11 (<14) MV E' Average 0.045 m/s MV E/E'(average) 19.36 Aortic Valve AoV Vmax 3.32 m/s LVOT Vmax 1.17 m/s AoV Peak Grad 55.5 mmHg LVOT Peak Grad 5.5 mmHg AoV Area (Vmax) 0.97 cm2 LVOT VTI 0.286 m AoV VTI 0.828 m LVOT Mean Grad 3.0 mmHg AoV Mean Rhys. 2.56 m/s LVOT SV 79.30 mL AoV Mean Grad 28.3 mmHg LVOT Diam s 1.85 cm AoV Area (VTI) 0.96 cm2 AV Regurg Peak Gr. 66.90 mmHg Velocity Ratio 0.35 AR Decel Howell 1.6m/sec2 AR DT 2572 msec AR PHT 746 msec AR Vmax 4.08 m/s Mitral Valve MV DT 241 (160-240 msec) MV Vmax TIPS 1.23 m/s MV Mean Grad 1.9 (<2mmHg) MV VTI 0.358 m Pulmonary Valve PV Vmax 0.89 (0.5-1.5 m/s) RVOT Vmax 0.85 m/s PV Peak Grad 3.1 mmHg RVOT Peak Gr. 2.9 mmHg PV Mean Rhys 0.61 m/s RVOT VTI 0.185 m PV Mean Grad 1.7 mmHg RVOT Mean Gr. 1.5 mmHg Tricuspid Valve RA Pressure 3.00 mmHg TR Vmax 2.37 m/s TV S' 0.17 m/s TR Peak Grad 22.5 mmHg RVSP (TR) 25.6 mmHg
--- NOTE | 2023-10-04 09:57 | DI.MAMMO_ITS ---
Exam(s) MAMMO SCREENING EXAM: MAMMO SCREENING CLINICAL HISTORY: SCREENING FOR BREAST CANCER Z00.00 ADULT MEDICAL EXAM TECHNIQUE: Mammograms were interpreted according to the usual protocol including computer analysis w [employer] CAD system, tomosynthesis and C-view imaging. COMPARISON: 2014 through 2021 FINDINGS: The breasts are composed of scattered fibroglandular densities, Breast Density category B. No suspicious masses or suspicious microcalcifications are seen. No skin thickening or abnormal axillary lymph nodes are seen. There has been no significant change from prior exams. IMPRESSION: BI-RADS Category 1, Negative mammogram Yearly screening mammography is recommended. Breast Density - Category B, scattered fibroglandular densities. A negative radiographic report should not delay biopsy if a dominant or clinically suspicious mass is present. Up to ten percent of cancers are not identified on mammography. A negative report may reinforce clinical impression. Adenosis and dense breasts may obscure an underlying neoplasm. False positive reports average 6 to 10%. Patient will receive a letter notifying them of these results.
== END ==
PROVIDERS: PCP Family Medicine; Visit Provider Family Medicine
DX: R01.1 Cardiac murmur, unspecified (principal)
CPT/HCPCS: 77063; 77067; 93306

== ENCOUNTER 2023-10-18 21:55 | Outpatient (REF) | payer BC, SELFPAY | END 2023-10-18 21:56 | disposition home or self-care (01) | LOC: LBN 21:55 | PROVIDERS: PCP Family Medicine; Visit Provider Physician Assistant | DX: N39.0 Urinary tract infection, site not specified (principal); B96.29 Other Escherichia coli [E. coli] as the cause of diseases classified elsewhere | CPT/HCPCS: 87077; 87086; 87186 ==

== ENCOUNTER 2023-12-20 22:01 | Emergency (ER) | payer BC, SELFPAY ==
[2023-12-20 22:07] VITALS: BP 172/69; PULSE 64; RESP 18; TEMP 36.1; O2SAT 98
--- NOTE | 2023-12-20 22:19 | ED.GENADUL_ITS ---
Discharge Plan Disposition Patient Disposition: Home Condition: Good Discharge Details Clinical Impression: Cellulitis Primary Care Provider: Low Prince ED Provider: Sinai Celeste Home Meds and New Rx's Prescriptions: New cephalexin 500 mg capsule 500 mg PO QID Qty: 20 0RF Continued timolol maleate 15 ML drops 1 drp OD DAILY cranberry extract-vitamin C [Azo Cranberry Plus Vit C] 1 EACH capsule 1 cap PO DAILY multivitamin Tablet 1 tab PO DAILY vitamin E 200 unit Capsule 200 unit PO DAILY ascorbic acid (vitamin C) [Vitamin C] 500 mg Tablet 500 mg PO DAILY cholecalciferol (vitamin D3) [Vitamin D3] 10 mcg (400 unit) Tablet 400 unit PO DAILY vitamin B complex Capsule 1 cap PO DAILY travoprost 0.004 % drops 1 drp ophthalmic (eye) HS Patient Comments: PLACE 1 DROP INTO THE LEFT EYE EVERY EVENING Discharge Instructions Instructions: Cellulitis (Skin Infection), Adult ED Additional Instructions: Cephalexin four times a day for the next 5 days. Tylenol over the counter for pain; follow the directions the bottle. Benadryl over the counter for itching; follow the directions on the bottle. Call your primary care doctor tomorrow to schedule an appointment to follow up on your visit today. Discuss your blood pressure at this visit as it is high here today. Return to the emergency department for new or worsening symptoms. Referrals: Low Prince MD [Primary Care Provider] - [facility] General Mode of arrival: ambulatory . Date/Time Provider Initiated Documentation: 12/20/23 22:08 . Limitations to Documentation: no limitations . Information obtained by: patient and family . HPI Narrative: 78yo F with hx glaucoma, otherwise healthy, presenting for swelling and redness after tic bite. Two days ago noted a tic behind her left knee which she removed. Over the past two days has had worsening swelling and redness spreading from the site, mildly pruritic. No discharge. No pain with knee movement. She is otherwise in her usual state of health with no fevers, chills, nausea, vomiting, malaise, or other concerns. Related Data Home Medications Medication Instructions Recorded Confirmed timolol maleate 0.5 % eye drops 1 drp OD DAILY 01/18/13 12/20/23 cranberry extract-vitamin C 250 1 cap PO DAILY 09/06/15 12/20/23 mg-60 mg capsule (Azo Cranberry Plus Vit C) ascorbic acid (vitamin C) 500 mg 500 mg PO DAILY 09/05/21 12/20/23 tablet (Vitamin C) cholecalciferol (vitamin D3) 10 400 unit PO DAILY 09/05/21 12/20/23 mcg (400 unit) tablet (Vitamin D3) multivitamin 1 tab PO DAILY 09/05/21 12/20/23 vitamin B complex 1 cap PO DAILY 09/05/21 12/20/23 vitamin E 200 unit capsule 200 unit PO DAILY 09/05/21 12/20/23 travoprost 0.004 % eye drops 1 drp ophthalmic (eye) HS 12/13/21 12/20/23 cephalexin 500 mg capsule 500 mg PO QID #20 caps 12/20/23 Previous Rx's Medication Instructions Recorded cephalexin 500 mg capsule 500 mg PO QID #20 caps 12/20/23 Allergies Allergy/AdvReac Type Severity Reaction Status Date / Time erythromycin base AdvReac Mild abd pain Unverified 12/20/23 22:12 [Erythromycin Base] latanoprost [From Xalatan] AdvReac Mild eyes Unverified 12/20/23 22:12 reddened and burned General Stated Complaint: InsectBite MARIA DE JESUS: 4 Review of Systems Narrative: see HPI Exam Narrative Exam Narrative: General: Alert, well appearing, well nourished, in no acute distress. Head: Normocephalic, atraumatic Neck: Trachea midline, ?Neck supple. Cardiac: ?RRR, no murmurs appreciated Resp: No respiratory distress. CTAB. Abd: Non-distended Extremities: ?No deformities.? No peripheral edema. Circular area of erythema posterior calf just distal to left knee, warm to the touch, ~5cm in diameter, TTP, with central lesion consistent with insect bite with no abscess, purulence, or drainage. No knee effusion. Knee nontender. Neurologic: GCS 15. ? Moves all extremities freely against gravity Course Vital Signs Vital signs: Vital Signs Temperature 36.1 C L 12/20/23 22:07 Pulse 64 12/20/23 22:07 Respiratory Rate 18 12/20/23 22:07 Blood Pressure 172/69 H 12/20/23 22:07 Pulse Oximetry 98 12/20/23 22:07 Temperature 36.1 C L 12/20/23 22:07 Temperature Source Temporal Artery Scan 12/20/23 22:07 Pulse 64 12/20/23 22:07 Respiratory Rate 18 12/20/23 22:07 Respiratory Effort Normal, Non-Labored 12/20/23 22:11 Blood Pressure 172/69 H 12/20/23 22:07 Blood Pressure Position Sitting 12/20/23 22:07 Pulse Oximetry 98 12/20/23 22:07 Oxygen Delivery Method Room Air 12/20/23 22:07 Oxygen Flow Rate 0 12/20/23 22:07 Pain Level 0 12/20/23 22:07 Medical Decision Making 78yo F with hx glaucoma, otherwise healthy, presenting for swelling and redness after tic bite two days ago. Systemically well. Hypertensive on arrival, vital signs otherwise reassuring. Not septic; would not get labs. No knee involvement, no indication for imaging or joint tap. On exam she has a circular area of erythema posterior calf just distal to left knee, warm to the touch, ~5cm in diameter, with central lesion consistent with insect bite with no abscess, purulence, or drainage. Possibly large local reaction however cellullitis also possible. Will give dose of doxy for lyme ppx, as well as 5 day course of keflex for possible cellullitis. Discharged home; discharge instructions and return precautions were reviewed with patient and son who verbalized understanding. Advised to followup with PCP regarding blood pressure. Ail questions were answered and she is in full agreement with the plan. Quality:SDOH Health Related Social Needs: No Data to Display PFSH All Active Problems (Updated 12/20/23 @ 22:19 by Sinai Celeste MD) Cellulitis (Acute) Medical History (Updated 12/20/23 @ 22:19 by Sinai Celeste MD) Glaucoma Cystitis Anxiety Surgical History colonoscpy (03/09/16) Cholecystectomy Appendectomy Social History Smoking/Tobacco Use Status: Never Smoking risk assessment performed?: Yes Alcohol Intake: current Alcohol Intake frequency: holidays/special occasions only Drug use: Never Substance use type: does not use Do you feel safe at home: Yes Do you feel safe in your relationship?: Yes
[2023-12-20] MEDS: Cephalexin 500 MG CAP PO (22:27)
[2023-12-20] MEDS: Doxycycline Hyclate 100 MG CAP 200 MG PO (22:27)
== END 2023-12-20 22:27 | disposition home or self-care (01) ==
PROVIDERS: Emergency Provider Student in an Organized Health Care Education/Training Program; PCP Family Medicine
DX: S80.262A Insect bite (nonvenomous), left knee, initial encounter (principal); L03.116 Cellulitis of left lower limb; W57.XXXA Bitten or stung by nonvenomous insect and other nonvenomous arthropods, initial encounter
CPT/HCPCS: 99283

== ENCOUNTER 2024-01-26 20:52 | Outpatient (REF) | payer BC, SELFPAY ==
[2024-01-26 15:01] LABS: Bacteria Rare HPF (Negative); C & S Indicated? C&S Done As Ordered; Casts Negative LPF (Negative); Crystals Negative HPF (Negative); Epithelial Cells Rare HPF (Negative); Mucus Negative (Negative); WBC 20-50 HPF (0-5)
== END 2024-01-26 20:53 | disposition home or self-care (01) ==
LOC: NCHCN 20:52
PROVIDERS: PCP Family Medicine; Visit Provider Physician Assistant Medical
DX: R30.0 Dysuria (principal)
CPT/HCPCS: 87077; 81015; 87086

== ENCOUNTER 2024-05-10 18:13 | Outpatient (REF) | payer BC, SELFPAY | END 2024-05-10 18:14 | disposition home or self-care (01) | LOC: LBN 18:13 | PROVIDERS: PCP Family Medicine; Visit Provider Nurse Practitioner Family | DX: N30.01 Acute cystitis with hematuria (principal) | CPT/HCPCS: 87077; 87086; 87186 ==

== ENCOUNTER 2024-07-31 19:03 | Outpatient (REF) | payer OTHER, SELFPAY | END 2024-07-31 19:04 | disposition home or self-care (01) | LOC: LBN 19:03 | PROVIDERS: PCP Family Medicine; Visit Provider Nurse Practitioner Family | DX: N30.00 Acute cystitis without hematuria (principal); R82.89 Other abnormal findings on cytological and histological examination of urine | CPT/HCPCS: 87077; 87086 ==

== ENCOUNTER 2024-08-10 18:17 | Outpatient (REF) | payer OTHER, SELFPAY ==
[2024-08-10 14:48] LABS: Bacteria Rare HPF (Negative); Crystals Negative HPF (Negative); Epithelial Cells Few HPF (Negative); Mucus Negative (Negative); Other Cells Few Yeast (Negative); WBC >50 HPF (0-5)
[2024-08-10 14:49] LABS: C & S Indicated? C&S Done As Ordered
== END 2024-08-10 18:18 | disposition home or self-care (01) ==
LOC: LBN 18:17
PROVIDERS: PCP Family Medicine; Visit Provider Physician Assistant Medical
DX: R30.0 Dysuria (principal)
CPT/HCPCS: 87077; 81015; 87086; 87186

== ENCOUNTER 2024-08-24 15:33 | Emergency (ER) | payer OTHER, SELFPAY ==
[2024-08-24] VITALS (16 sets, daily range): BP systolic 170–195; BP diastolic 70–109; PULSE 64–74; RESP 10–21; TEMP 36.6–36.8; O2SAT 92–99
--- NOTE | 2024-08-24 15:30 | RT.EKG_ITS ---
APPROVED REPORT Exam: Resting ECG Reason for Exam: chest pain Patient Location: E HR:66 bpm ECG Measurements Heart Rate 66 AXIS NH 137 P 35 QRSd 86 QRS 1 QT 369 T 65 QTc 383 Conclusion Sinus rhythm...normal P axis, V-rate 60- 99 Atrial premature complex...SV complex w/ short R-R interval Probable left atrial enlargement...P >50mS, <-0.10mV V1 Anterior infarct, old...Q >40mS, abnormal ST-T, V2-V5 Physician: No Stemi
--- NOTE | 2024-08-24 16:03 | DI.RAD_ITS ---
Exam(s) XR PORTABLE CHEST AP EXAM: XR PORTABLE CHEST AP CLINICAL HISTORY: chest pain TECHNIQUE: 2D digital imaging was performed. COMPARISON: CR,XR XR CHEST 2V PA LATERAL from 09/05/2021 FINDINGS: LUNGS: Clear. No pleural abnormality seen. HEART: Normal size. AORTA: Normal diameter. BONES: Unremarkable for age. Soft tissues: Unremarkable. IMPRESSION: No acute findings. DATA REPOSITORY: RADIATION DOSE DELIVERED:
[2024-08-24 16:34] LABS: Abs Immature Grans 0.02 10^3/uL (0.0-0.06); Absolute Basophil Count 0.05 10^3/uL (0.0-0.2); Absolute Lymphocyte Count 2.02 10^3/uL (1.2-3.4); Absolute Monocyte Count 0.72 10^3/uL (0.1-0.8); Basophils % 0.6 %; Eosinophils % 2.6 %; HCT 43.5 % (36.0-46.0); HGB 14.7 g/dL (11.2-15.7); Immature Grans % 0.3 %; Lymphocytes % 25.9 %; MCHC 33.8 % (32.0-36.0); MCV 95 fL (80-95); MPV 10.3 fL (8.0-11.0); Monocytes % 9.2 %; Neutrophils % 61.4 %; Platelet Count 191 10^3/uL (130-400); RDW 13.2 % (11.7-14.6); RDW-SD 46.5 fL; WBC 7.81 10^3/uL (4.4-10.8)
[2024-08-24 17:05] LABS: ALT 26 U/L (14-59); AST 19 U/L (15-37); Albumin 3.6 g/dL (3.4-5.0); Alkaline Phosphatase 82 U/L (46-116); Anion Gap 3.9 mmol/L (3-11); BUN 22 mg/dL (7-18); Bilirubin, Total 0.5 mg/dL (0.2-1.0); CO2 33.1 mmol/L (21.0-32.0); CREATININE 0.5 mg/dL (0.55-1.02); Calcium 9.7 mg/dL (8.5-10.1); Chloride 105 mmol/L (98-107); Estimated GFR 95.35 (mL/min/1.73m2); Glucose 109 mg/dL (74-106); NT-proBNP 708 pg/mL (<300); Potassium 4.3 mmol/L (3.5-5.1); Sodium 142 mmol/L (136-145); Total Protein 7.2 g/dL (6.4-8.2); Troponin I 21 ng/L (<or=51)
--- NOTE | 2024-08-24 17:16 | ED.GENADUL_ITS ---
Discharge Plan Disposition Patient Disposition: Home Condition: Good Discharge Details Clinical Impression: Chest discomfort, Aortic stenosis Primary Care Provider: Low Prince ED Provider: Oz Calloway Home Meds and New Rx's Prescriptions: No Action timolol maleate 15 ML drops 1 drp OD DAILY cranberry extract-vitamin C [Azo Cranberry Plus Vit C] 1 EACH capsule 1 cap PO DAILY cephalexin 500 mg capsule 500 mg PO QID Qty: 20 0RF multivitamin Tablet 1 tab PO DAILY vitamin E 200 unit Capsule 200 unit PO DAILY ascorbic acid (vitamin C) [Vitamin C] 500 mg Tablet 500 mg PO DAILY cholecalciferol (vitamin D3) [Vitamin D3] 10 mcg (400 unit) Tablet 400 unit PO DAILY vitamin B complex Capsule 1 cap PO DAILY travoprost 0.004 % drops 1 drp ophthalmic (eye) HS Patient Comments: PLACE 1 DROP INTO THE LEFT EYE EVERY EVENING Discharge Instructions Instructions: Chest pain Additional Instructions: At this time your workup is returned reassuring. Your heart numbers have returned and are stable. Your chest x-ray shows no evidence of significant pneumonia or abnormality. As we discussed together I am concerned about your aortic stenosis. It would probably be prudent to have a repeat echo of your heart for reassessment or worsening of your aortic stenosis. It would probably be beneficial to have her recheck of your standard labs checking for cholesterol and diabetes. Please follow-up closely with your primary care provider for reassessment of this. If you notice any worsening of your symptoms, or any new symptoms such as vomiting, diarrhea, fever, chills, shortness of breath, chest pain, numbness, weakness, or fainting , please return immediately to the emergency department for reevaluation. Please follow up with your primary care provider as soon as possible for reassessment and reevaluation. As always, it was a pleasure participating in your medical care today. Referrals: Low Prince MD [Primary Care Provider] - [facility] General Date/Time Provider Initiated Documentation: 08/24/24 15:38 . HPI Narrative: 78-year-old female with a past medical history of glaucoma, anxiety, cholecystectomy, appendectomy, presents today for evaluation of chest discomfort. Patient states that at 3 PM she had mild discomfort in her central chest which she describes as a sharp pressure-like sensation. She had a burning sensation that radiated up into her neck. She had a few episodes of burping. It was not exertional, in fact was slightly made better as she walked around. She decided to come to the emergency department, and on her way here she had a few more episodes of burping and the chest pain resolved. She states that she has had symptoms like this in the past, usually about once a week and usually at night when she lies down. She denies any personal history of cardiac disease. She does not smoke. She denies any vomiting or diarrhea. No dietary changes. No other complaints at this time. Related Data Home Medications ?Medication ?Instructions ?Recorded ?Confirmed timolol maleate 0.5 % eye drops 1 drp OD DAILY 01/18/13 08/24/24 cranberry extract-vitamin C 250 1 cap PO DAILY 09/06/15 08/24/24 mg-60 mg capsule (Azo Cranberry Plus Vit C) ascorbic acid (vitamin C) 500 mg 500 mg PO DAILY 09/05/21 08/24/24 tablet (Vitamin C) cholecalciferol (vitamin D3) 10 400 unit PO DAILY 09/05/21 08/24/24 mcg (400 unit) tablet (Vitamin D3) multivitamin 1 tab PO DAILY 09/05/21 08/24/24 vitamin B complex 1 cap PO DAILY 09/05/21 08/24/24 vitamin E 200 unit capsule 200 unit PO DAILY 09/05/21 08/24/24 travoprost 0.004 % eye drops 1 drp ophthalmic (eye) HS 12/13/21 08/24/24 cephalexin 500 mg capsule 500 mg PO QID #20 caps 12/20/23 Previous Rx's ?Medication ?Instructions ?Recorded cephalexin 500 mg capsule 500 mg PO QID #20 caps 12/20/23 Allergies Allergy/AdvReac Type Severity Reaction Status Date / Time erythromycin base AdvReac Mild abd pain Unverified 08/24/24 15:40 (Erythromycin Base) latanoprost (From Xalatan) AdvReac Mild eyes Unverified 08/24/24 15:40 reddened and burned General Stated Complaint: Chest Pain MARIA DE JESUS: 3 Exam Narrative Exam Narrative: 1.Const: Well-nourished, Well-developed, appearing stated age 2.Eyes: PERRL, no conjunctival injection, and symmetrical lids. 3.ENT: Atraumatic external nose and ears. Moist MM. Neck: Symmetric, trachea midline, No thyromegaly. 4.CVS: +S1/S2, notable systolic murmur is noted peripheral pulses 2+ and equal in all extremities. Brisk capillary refill in all extremities. 5.RESP: Unlabored respiratory effort. Clear to auscultation bilaterally. No wheezes rales or rhonchi 6.GI: Soft, Nontender/Nondistended, No hepatosplenomegaly. No guarding or rebound. 7.MSK: Normocephalic/Atraumatic, Extremities w/o deformity or ttp No cyanosis or clubbing, Normal movement of all extremities 8.Skin: Warm, Dry. No rashes or lesions. 9.Neuro: ultrasound sonographer II-XII grossly intact. Sensation grossly intact, no focal n eurologic deficits. 10.Psych: (AAO) x3. Appropriate mood and affect Course Vital Signs Vital signs: Vital Signs Temperature 36.6 C 08/24/24 15:35 Pulse 64 08/24/24 15:35 Respiratory Rate 18 08/24/24 15:35 Blood Pressure 195/76 H 08/24/24 15:35 Pulse Oximetry 98 08/24/24 15:35 Temperature 36.6 C 08/24/24 15:35 Temperature Source Temporal Artery Scan 08/24/24 15:35 Pulse 65 08/24/24 16:50 Pulse 66 08/24/24 17:00 Respiratory Rate 19 08/24/24 17:00 Respiratory Effort Normal, Non-Labored 08/24/24 16:04 Respiratory Depth Normal 08/24/24 16:04 Respiratory Pattern Normal 08/24/24 16:04 Blood Pressure 177/81 H 08/24/24 16:46 Blood Pressure Mean 117 08/24/24 16:46 Pulse Oximetry 95 08/24/24 16:50 Lab/Test Results Lab/Test Results: Laboratory Tests Range/Units 08/24/24 16:22 WBC (4.4-10.8) 10^3/uL 7.81 RBC (3.93-5.22) 10^6/uL 4.60 Hgb (11.2-15.7) g/dL 14.7 Hct (36.0-46.0) % 43.5 MCV (80-95) fL 95 MCH (27.0-33.0) pg 32.0 MCHC (32.0-36.0) % 33.8 RDW (11.7-14.6) % 13.2 Plt Count (130-400) 10^3/uL 191 MPV (8.0-11.0) fL 10.3 Immature Gran % % 0.3 Neutrophils % % 61.4 Lymphocytes % % 25.9 Monocytes % % 9.2 Eosinophils % % 2.6 Basophils % % 0.6 Nucleated RBC % (0.0-0.3) % 0.0 Absolute Neutrophils (1.2-6.7) 10^3/uL 4.80 Absolute Lymphocytes (1.2-3.4) 10^3/uL 2.02 Absolute Monocytes (0.1-0.8) 10^3/uL 0.72 Absolute Eosinophils (0.0-0.7) 10^3/uL 0.20 Absolute Basophils (0.0-0.2) 10^3/uL 0.05 Sodium (136-145) mmol/L 142 Potassium (3.5-5.1) mmol/L 4.3 Chloride (98-107) mmol/L 105 Carbon Dioxide (21.0-32.0) mmol/L 33.1 H Anion Gap (3-11) mmol/L 3.9 BUN (7-18) mg/dL 22 H Creatinine (0.55-1.02) mg/dL 0.5 L Est GFR (CKD-EPI 2020) (mL/min/1.73m2) 95.35 Glucose (74-106) mg/dL 109 H Calcium (8.5-10.1) mg/dL 9.7 Total Bilirubin (0.2-1.0) mg/dL 0.5 AST (15-37) U/L 19 ALT (14-59) U/L 26 Alkaline Phosphatase (46-116) U/L 82 Troponin I (<or=51) ng/L 21 NT-Pro-B Natriuret Pep (<300) pg/mL 708 H Total Protein (6.4-8.2) g/dL 7.2 Albumin (3.4-5.0) g/dL 3.6 Medical Decision Making 78-year-old female with a past medical history of glaucoma, anxiety, cholecystectomy, appendectomy, presents today for evaluation of chest discomfort. Patient states that at 3 PM she had mild discomfort in her central chest which she describes as a sharp pressure-like sensation. She had a burning sensation that radiated up into her neck. She had a few episodes of burping. It was not exertional, in fact was slightly made better as she walked around. She decided to come to the emergency department, and on her way here she had a few more episodes of burping and the chest pain resolved. She states that she has had symptoms like this in the past, usually about once a week and usually at night when she lies down. She denies any personal history of cardiac disease. She does not smoke. She denies any vomiting or diarrhea. No dietary changes. No other complaints at this time. Exam demonstrates well-appearing female, no abnormalities. EKG shows no evidence of STEMI. Differential includes GERD, esophageal spasm, less likely ACS. Symptoms appear inconsistent with PE. We will evaluate for concerning etiologies, including heart strain, we will get chest x-ray, monitor closely and reassess. 6:50 PM Laboratory workup is returned, patient demonstrates no white count bandemia, renal function stable, proBNP slightly elevated at 708, troponin normal, repeat troponin normal. Patient feels well, chest pain is still absent. Chest x-ray negative for acute process. Bedside echo demonstrates good cardiac contractility, however notable aortic stenosis is present. While I do not suspect that this is the cause of her pain, and that the pain is more likely secondary to esophageal irritation or spasm I do feel that this notable aortic stenosis certainly requires further evaluation. Patient's last echo was 10/04/2023, I do recommend repeat echo for reassessment of potential worsening aortic stenosis. The patient has had no syncope, she has no significant lightheadedness. She does not show evidence to suggest severe AAS requiring emergent management, but I do feel close follow-up and reassessment would be notably beneficial. Discussed this with the patient, and she agrees. Patient will be discharged home, as there is currently no evidence of ACS, PE dissection or other significant life-threatening etiology on exam, however I did discuss the need for close follow-up and repeat echo. Patient understands this. Discussed red flags for which to return. Vital signs remained stable at time of discharge. I have extensively reviewed the treatment plan and discharge instructions with the patient and their family. I have addressed all patient concerns at this time. The patient and family was made aware of what symptoms to monitor for that would warrant a return to the emergency department. Discussed the plan with the patient and family, they demonstrate verbal understanding and agreement with our assessment and plan at this time. The documentation in this chart was dictated using [employer] dictation software. Please excuse any dictation errors. FINDINGS: LUNGS: Clear. No pleural abnormality seen. HEART: Normal size. AORTA: Normal diameter. BONES: Unremarkable for age. Soft tissues: Unremarkable. IMPRESSION: No acute findings. Quality:SDOH Health Related Social Needs: No Data to Display PFSH All Active Problems (Updated 08/24/24 @ 22:13 by Oz Calloway DO) Aortic stenosis (Chronic) Chest discomfort (Acute) Medical History (Updated 08/24/24 @ 22:13 by Oz Calloway DO) Glaucoma Cystitis Anxiety Surgical History colonoscpy (03/09/16) Cholecystectomy Appendectomy Social History Smoking/Tobacco Use Status: Never Smoking risk assessment performed?: Yes Alcohol Intake: current Alcohol Intake frequency: holidays/special occasions only Drug use: Never Substance use type: does not use Do you feel safe at home: Yes Do you feel safe in your relationship?: Yes POCUS Exam (ED) Limited Cardiac Exam DATE OF EXAM: 08/24/24 TIME OF EXAM: 22:09 PROVIDER THAT PERFORMED THE STUDY: Oz Calloway IS THIS A REPEAT EXAM DURING THIS ENCOUNTER: no REASON FOR EXAM: Chest pain VISUALIZED STRUCTURES: Left atrium, Left ventricle, Right ventricle, Aortic valve and Interventricular septum VIEW OBTAINED: Parasternal long-axis PERTINENT FINDINGS/IMPRESSION: Other (Notable aortic stenosis) Notable aortic stenosis Exam complete
[2024-08-24 17:27] LABS: Troponin I 21 ng/L (<or=51)
== END 2024-08-24 18:50 | disposition home or self-care (01) ==
PROVIDERS: Emergency Provider Student in an Organized Health Care Education/Training Program; PCP Family Medicine
DX: R07.9 Chest pain, unspecified (principal); I35.0 Nonrheumatic aortic (valve) stenosis
CPT/HCPCS: 36415; 80053; 93005; 93308; 99285; 71045; 83880; 84484; 85025; 93010; 99284

== ENCOUNTER 2024-09-26 00:42 | Outpatient (CLI) | payer OTHER, SELFPAY ==
--- NOTE | 2024-09-26 09:30 | DI.US_ITS ---
APPROVED REPORT EXAM: Comprehensive 2D, Doppler, and color-flow Echocardiogram Patient Location: Out-Patient Restaurant Bartender: Anderson Sylvester RDCS (AE) Indications: Nonrheumatic aortic valve stenosis Other Information Study Quality: Adequate. Technically limited study due to body habitus. Conclusion Mild concentric left ventricular hypertrophy. Ejection fraction is 60 to 65%. Wall motion is normal Normal right ventricular size and function Both atria are normal in size Aortic valve is calcified and trileaflet. There is severe aortic stenosis. Peak gradient is 60, huang n 33 mmHg. Calculated aortic valve area is 0.6 cm??. There is mild aortic regurgitation Normal mitral valve with trace to mild regurgitation Mild tricuspid regurgitation with estimated right ventricular systolic pressure of 36 mmHg Wall motion Left Ventricle The left ventricle is normal size. The left ventricular systolic function is normal. The left ventric ular ejection fraction is within the normal range. Mild concentric left ventricular hypertrophy. Ther e is normal LV segmental wall motion. There is no ventricular septal defect visualized. LVEF is 60%. Right Ventricle The right ventricle is normal size. The right ventricular systolic function is normal. Atria The left atrium size is normal. The right atrium size is normal. The interatrial septum is intact wit h no evidence for an atrial septal defect. Aortic Valve Aortic valve is calcified. Aortic valve is trileaflet. Moderate to severe aortic stenosis. Peak aorti c valve gradient is 50.56 mmHg. Highest mean aortic valve gradient is 33.45 mmHg. Calculated MATY by t he continuity equation is 0.6 cm2. Mild aortic regurgitation. Mitral Valve The mitral valve is normal in structure. No evidence of mitral valve stenosis. Trace to mild mitral r egurgitation. Tricuspid Valve The tricuspid valve is normal in structure. There is no tricuspid valve stenosis. Mild tricuspid regu rgitation. The RVSP is 36 mmHg. Pulmonic Valve The pulmonary valve is normal in structure. There is no pulmonic valvular stenosis. There is no pulmo anuradha valvular regurgitation. Great Vessels The aortic root is normal in size. Ascending aorta is not well visualized. Aortic arch is normal in c aliber. IVC is normal in size and collapses >50% with inspiration. Pericardium There is no pericardial effusion. 2D Dimensions IVSD d PLAX 1.18 cm F: 0.6-1.0 Ao Root d 2.25 cm F: 2.7 - 3.3 LVPW d PLAX 1.22 cm F: 0.6 - 1.0 LVID d PLAX 3.64 cm F: 3.8 - 5.2 LVDs 2.62 cm F: 2.2 - 3.5 LV EF Teichholz 55.1 % FS 28.02 % LV EDV (Teich) 55.9 mL LV ESV (Teich) 25.1 mL Stroke Vol Index (Teich) 17.72 M-Mode TAPSE 2.80 cm (M/F) >1.7 Auto EF LV EDV A4C 79.0 mL LV EDV A2C 71.7 mL LV EDV BP 73.6 mL LV ESV A4C 33.1 mL LV ESV A2C 27.2 mL LV ESV BP 30.4 mL LVEF(%) A4C 58.1 % LVEF(%) A2C 62.1 % LVEF(%) BP 58.8 % LV SV A4C 45.9 ml LV SV A2C 44.5 ml LV SV BP 43.3 ml LV CO A4C 3.3 L/min LV CO A2C 3.1 L/min LV CO BP 3.2 L/min HR A4C 71.58 BPM HR A2C 68.94 BPM LV EDV Index (BP) LA Volume LA Length A4C 3.6 cm LA Length A2C LA Area A4C s 6.66 cm2 LA Area A2C s LA Vol A4C A-L 10.53 mL LA Vol A2C A-L LA Vol Biplane A-L LA Vol A4C MOD 10.3 mL LA Vol A2C MOD LA Vol BP MOD RA Volume RA Area A4C 8.0 cm2 RA ESV A4C (A-L) 13.4mL RA Vol/BSA A4C A-L RA Length A4C 4.1 cm RA ESV A4C (MOD) 13.2mL LV Diastology MV E' medial 0.056 (>0.07 m/s) MV E Vmax 0.75 (0.4-1.3 m/s) MV E/E' MED 13.36 (<14) MV A Vmax 1.20 (0.4-1.3 m/s) MV E' lateral 0.041 (>0.1 m/s) E/A Ratio 0.6 MV E/E' LAT 18.35 (<14) MV E' Average 0.049 m/s MV E/E'(average) 15.46 Aortic Valve AoV Vmax 3.56 m/s LVOT Vmax 0.92 m/s AoV Peak Grad 60.3 mmHg LVOT Peak Grad 3.4 mmHg AoV Area (Vmax) 0.59 cm2 LVOT VTI 0.244 m AoV VTI 0.898 m LVOT Mean Grad 2.1 mmHg AoV Mean Rhys. 2.77 m/s LVOT SV 55.36 mL AoV Mean Grad 33.4 mmHg LVOT Diam s 1.70 cm AoV Area (VTI) 0.62 cm2 AV Regurg Peak Gr. 50.56 mmHg Velocity Ratio 0.26 AR Decel Pike 3.1m/sec2 AR DT 1341 msec AR PHT 389 msec AR Vmax 4.18 m/s Mitral Valve MV DT 356 (160-240 msec) MV Vmax TIPS 1.13 m/s MV Mean Grad 1.7 (<2mmHg) MV VTI 0.305 m Tricuspid Valve RA Pressure 3.00 mmHg TR Vmax 2.86 m/s TV S' 0.19 m/s TR Peak Grad 32.6 mmHg RVSP (TR) 35.6 mmHg
== END 2024-09-26 01:02 ==
LOC: DI 00:42
PROVIDERS: PCP Family Medicine; Visit Provider Internal Medicine Cardiovascular Disease
DX: I35.0 Nonrheumatic aortic (valve) stenosis (principal)
CPT/HCPCS: 93306

== ENCOUNTER 2024-09-29 15:58 | Outpatient (REF) | payer OTHER, SELFPAY ==
[2024-09-29 17:09] LABS: Bacteria Few HPF (Negative); Crystals Negative HPF (Negative); Epithelial Cells Negative HPF (Negative); Mucus Negative (Negative)
[2024-09-29 17:10] LABS: C & S Indicated? C&S Done As Ordered
== END 2024-09-29 15:59 | disposition home or self-care (01) ==
LOC: LBN 15:58
PROVIDERS: PCP Family Medicine; Visit Provider Physician Assistant Medical
DX: N39.0 Urinary tract infection, site not specified (principal); R82.89 Other abnormal findings on cytological and histological examination of urine
CPT/HCPCS: 87077; 81015; 87086

== ENCOUNTER 2024-10-08 08:38 | Outpatient (CLI) | payer OTHER, SELFPAY ==
--- NOTE | 2024-10-08 08:30 | RT.EKG_ITS ---
APPROVED REPORT Exam: Resting ECG Reason for Exam: chest pain Patient Location: O HR:68 bpm ECG Measurements Heart Rate 68 AXIS OR 141 P 20 QRSd 93 QRS 0 QT 368 T 56 QTc 392 Conclusion Sinus rhythm...normal P axis, V-rate 50- 99 Left atrial enlargement...P, P'>60mS, <-0.15mV V1 Otherwise normal ECG
== END 2024-10-08 08:39 | disposition home or self-care (01) ==
LOC: DI.CARD 08:39
PROVIDERS: PCP Family Medicine; Visit Provider Registered Nurse
DX: R07.9 Chest pain, unspecified (principal); I51.7 Cardiomegaly
CPT/HCPCS: 93010

== ENCOUNTER 2024-10-08 13:22 | Outpatient (CLI) | payer OTHER, SELFPAY ==
[2024-10-08 12:36] LABS: Abs Immature Grans 0.04 10^3/uL (0.0-0.06); Absolute Basophil Count 0.05 10^3/uL (0.0-0.2); Absolute Eosinophil Count 0.17 10^3/uL (0.0-0.7); Absolute Lymphocyte Count 1.87 10^3/uL (1.2-3.4); Absolute Monocyte Count 0.77 10^3/uL (0.1-0.8); Absolute Neutrophil Count 5.76 10^3/uL (1.2-6.7); Basophils % 0.6 %; HCT 46.8 % (36.0-46.0); HGB 15.2 g/dL (11.2-15.7); Immature Grans % 0.5 %; Lymphocytes % 21.6 %; MCH 31.7 pg (27.0-33.0); MCHC 32.5 % (32.0-36.0); MCV 98 fL (80-95); MPV 10.1 fL (8.0-11.0); Monocytes % 8.9 %; Neutrophils % 66.4 %; Platelet Count 214 10^3/uL (130-400); RBC 4.79 10^6/uL (3.93-5.22); RDW 13.1 % (11.7-14.6); RDW-SD 46.7 fL; WBC 8.66 10^3/uL (4.4-10.8)
[2024-10-08 12:51] LABS: PTT Activated 24.2 sec (20.6-30.2); Prothrombin Time 10.5 sec (9.1-11.1)
[2024-10-08 13:23] LABS: Anion Gap 4.1 mmol/L (3-11); BUN 16 mg/dL (7-18); CO2 32.9 mmol/L (21.0-32.0); CREATININE 0.6 mg/dL (0.55-1.02); Chloride 104 mmol/L (98-107); Estimated GFR 90.68 (mL/min/1.73m2); Glucose 98 mg/dL (74-106); Potassium 4.3 mmol/L (3.5-5.1); Sodium 141 mmol/L (136-145)
== END 2024-10-08 13:23 | disposition home or self-care (01) ==
LOC: LBO 13:22
PROVIDERS: PCP Family Medicine; Visit Provider Registered Nurse
DX: I35.0 Nonrheumatic aortic (valve) stenosis (principal); Z01.812 Encounter for preprocedural laboratory examination
CPT/HCPCS: 36415; 80051; 82947; 84520; 82565; 85025; 85610; 85730

== ENCOUNTER 2024-10-29 18:03 | Outpatient (REF) | payer OTHER, SELFPAY ==
[2024-10-29 19:36] LABS: Bacteria Many HPF (Negative); C & S Indicated? C&S Done As Ordered; Casts Negative LPF (Negative); Crystals Negative HPF (Negative); Epithelial Cells Rare HPF (Negative); Mucus Negative (Negative); RBC Negative HPF (0-2); WBC 20-50 HPF (0-5)
== END 2024-10-29 18:04 | disposition home or self-care (01) ==
LOC: LBN 18:03
PROVIDERS: PCP Family Medicine; Visit Provider Nurse Practitioner Family
DX: R30.0 Dysuria (principal); R82.89 Other abnormal findings on cytological and histological examination of urine
CPT/HCPCS: 87077; 81015; 87086; 87186

== ENCOUNTER 2024-11-12 18:05 | Outpatient (REF) | payer OTHER, SELFPAY | END 2024-11-12 18:06 | disposition home or self-care (01) | LOC: LBN 18:05 | PROVIDERS: PCP Family Medicine; Visit Provider Nurse Practitioner Family | DX: N39.0 Urinary tract infection, site not specified (principal) | CPT/HCPCS: 87077; 87086; 87186 ==

== ENCOUNTER 2024-12-12 19:31 | Outpatient (REF) | payer OTHER, SELFPAY ==
[2024-12-12 16:57] LABS: Bacteria Negative HPF (Negative); C & S Indicated? C&S Done As Ordered; Crystals Negative HPF (Negative); Epithelial Cells Rare HPF (Negative); Mucus Trace (Negative); WBC >50 HPF (0-5)
== END 2024-12-12 19:32 | disposition home or self-care (01) ==
LOC: LBN 19:31
PROVIDERS: PCP Family Medicine; Visit Provider Physician Assistant Medical
DX: R30.0 Dysuria (principal)
CPT/HCPCS: 81015; 87086

== ENCOUNTER 2024-12-29 00:13 | Outpatient (REF) | payer MEDICARE, OTHER, SELFPAY | END 2024-12-29 00:14 | disposition home or self-care (01) | LOC: LBN 00:13 | PROVIDERS: PCP Family Medicine; Visit Provider Nurse Practitioner Family | DX: N30.01 Acute cystitis with hematuria (principal) | CPT/HCPCS: 87077; 87086; 87186 ==

== ENCOUNTER 2025-03-08 11:00 | Outpatient (RCR) | payer MEDICARE, OTHER, SELFPAY ==
--- NOTE | 2025-03-08 10:15 | RT.EKG_ITS ---
APPROVED REPORT Exam: Resting ECG Reason for Exam: CR Intake Appointment - Baseline EKG Patient Location: O HR:68 bpm ECG Measurements Heart Rate 68 AXIS AL 139 P 48 QRSd 89 QRS 47 QT 370 T 58 QTc 394 Conclusion Sinus rhythm...normal P axis, V-rate 50- 99 Normal Electrocardiogram
== END 2025-03-19 23:59 | disposition home or self-care (01) ==
LOC: CR 11:00
PROVIDERS: PCP Family Medicine; Visit Provider Internal Medicine Cardiovascular Disease
DX: I35.0 Nonrheumatic aortic (valve) stenosis (principal); Z51.89 Encounter for other specified aftercare
CPT/HCPCS: S9472

== ENCOUNTER 2025-03-13 09:00 | Outpatient (RCR) | payer MEDICARE, OTHER, SELFPAY | END 2025-03-19 23:59 | disposition home or self-care (01) | LOC: CR 09:00 | PROVIDERS: PCP Family Medicine; Visit Provider Internal Medicine Cardiovascular Disease | DX: I35.0 Nonrheumatic aortic (valve) stenosis (principal); Z95.5 Presence of coronary angioplasty implant and graft; Z51.89 Encounter for other specified aftercare | CPT/HCPCS: S9472 ==

== ENCOUNTER 2025-04-19 09:00 | Outpatient (RCR) | payer MEDICARE, OTHER, SELFPAY | END 2025-04-19 23:59 | disposition home or self-care (01) | LOC: CR 09:00 | PROVIDERS: PCP Family Medicine; Visit Provider Internal Medicine Cardiovascular Disease | DX: I35.0 Nonrheumatic aortic (valve) stenosis (principal); Z95.2 Presence of prosthetic heart valve; Z51.89 Encounter for other specified aftercare | CPT/HCPCS: S9472 ==

== ENCOUNTER 2025-05-09 12:41 | Outpatient (REF) | payer MEDICARE, OTHER, SELFPAY ==
[2025-05-09 17:37] LABS: WBC >50 HPF (0-5)
== END 2025-05-09 12:42 | disposition home or self-care (01) ==
LOC: LBN 12:41
PROVIDERS: PCP Family Medicine; Visit Provider Physician Assistant Medical
DX: R30.0 Dysuria (principal)
CPT/HCPCS: 87077; 81015; 87086; 87186

== ENCOUNTER 2025-05-15 09:00 | Outpatient (RCR) | payer MEDICARE, OTHER, SELFPAY | END 2025-05-19 23:59 | disposition home or self-care (01) | LOC: CR 09:00 | PROVIDERS: PCP Family Medicine; Visit Provider Internal Medicine Cardiovascular Disease | DX: I35.0 Nonrheumatic aortic (valve) stenosis (principal); Z95.2 Presence of prosthetic heart valve; Z51.89 Encounter for other specified aftercare | CPT/HCPCS: S9472 ==

== ENCOUNTER 2025-05-29 09:00 | Outpatient (RCR) | payer MEDICARE, OTHER, SELFPAY | END 2025-06-19 23:59 | disposition home or self-care (01) | LOC: CR 09:00 | PROVIDERS: PCP Family Medicine; Visit Provider Internal Medicine Cardiovascular Disease | DX: I35.0 Nonrheumatic aortic (valve) stenosis (principal); Z95.5 Presence of coronary angioplasty implant and graft | CPT/HCPCS: S9472 ==

== ENCOUNTER 2025-05-30 15:51 | Outpatient (REF) | payer MEDICARE, OTHER, SELFPAY ==
[2025-05-30 15:57] LABS: WBC >50 HPF (0-5)
== END 2025-05-30 15:52 | disposition home or self-care (01) ==
LOC: LBN 15:51
PROVIDERS: PCP Family Medicine; Visit Provider Physician Assistant Medical
DX: R30.0 Dysuria (principal)
CPT/HCPCS: 87077; 81015; 87086; 87186

== ENCOUNTER → 2025-06-06 10:30 | Outpatient (BNVA) | payer MEDICARE, OTHER, SELFPAY | PROVIDERS: PCP Family Medicine; Referring Provider Family Medicine; Visit Provider Nurse Practitioner Gerontology | DX: N39.0 Urinary tract infection, site not specified (principal) | CPT/HCPCS: 99215 ==

== ENCOUNTER 2025-06-07 09:00 | Outpatient (RCR) | payer MEDICARE, OTHER, SELFPAY | END 2025-06-19 23:59 | disposition home or self-care (01) | LOC: CR 09:00 | PROVIDERS: PCP Family Medicine; Visit Provider Internal Medicine Cardiovascular Disease | DX: I35.0 Nonrheumatic aortic (valve) stenosis (principal); Z95.5 Presence of coronary angioplasty implant and graft; Z51.89 Encounter for other specified aftercare | CPT/HCPCS: S9472 ==